=== PATIENT | female | born 1955 | race Two or more races ===

== ENCOUNTER 2016-07-21 15:54 | Emergency (ER) | payer MEDICAID ==
[~2016-07-21] VITALS: Ht 154.9 cm; Wt 62.6 kg
[2016-07-21 16:51] LABS: Basophils # (auto) 0.1 uL; Basophils % (auto) 0.6 % (0.0-2.0); Eosinophils # (auto) 0 uL; Eosinophils % (auto) 0.3 % (0.0-7.0); Hematocrit 45.6 % (36.0-46.0); Hemoglobin 14.8 g/dL (12.2-16.2); Lymphocytes # (auto) 1.4 uL; Lymphocytes % (auto) 8.2 % (10.0-50.0); Mean Corpuscular Hemoglobin 27.7 pg (28.0-32.0); Mean Corpuscular Hgb Conc. 32.4 g/dL (32.0-36.0); Mean Corpuscular Volume 85.6 fL (80.0-100.0); Mean Platelet Volume 9.9 fL (7.4-10.4); Monocytes # (auto) 0.6 uL; Monocytes % (auto) 3.8 % (0.0-12.0); Neutrophils # (auto) 14.8 uL; Neutrophils % (auto) 87.1 % (37.0-80.0); Platelet Count (auto) 239 10^3/uL (140-450); Red Cell Distribution Width 13.4 % (11.6-16.0)
[2016-07-21 17:19] LABS: Albumin 4.1 g/dL (3.4-5.0); BUN/Creatinine Ratio 18.3; Calcium 9.5 mg/dL (8.5-10.1); Potassium 3.4 mmol/L (3.5-5.1)
[2016-07-21 17:21] LABS: Bilirubin, Total 0.6 mg/dL (0.2-1.0); Total Protein 8.4 g/dL (6.4-8.2)
[2016-07-21] MEDS ORDERED: SODIUM CHLORIDE 0.9% 1,000 ML IVB ONE (20:26)
[2016-07-21] MEDS ORDERED: ONDANSETRON HCL 4 MG/2 ML VIAL IV ONE (20:30)
[2016-07-21] MEDS ORDERED: LORazepam 0.5 MG TAB PO ONE (20:30)
[2016-07-21 21:43] LABS: Urine Bilirubin Negative (Negative); Urine Blood Negative /uL (Negative); Urine Color Yellow (Yellow); Urine Glucose Normal (Normal); Urine Ketone Negative (Negative); Urine Nitrite Negative (Negative); Urine RBC 6 /hpf (0 - 4); Urine Squamous Epithelial Cell FEW /hpf (<5); Urine Urobilinogen Normal (Negative); Urine pH 7.5 (5.0-8.0)
[2016-07-21 22:05] VITALS: BP 114/67
== END 2016-07-21 22:24 | disposition home or self-care (01) ==
LOC: EDUNIT# 15:54 → EDBD 15:57 → ER 15:57
DX: R10.9 Unspecified abdominal pain (principal); F41.9 Anxiety disorder, unspecified; Z88.6 Allergy status to analgesic agent
CPT/HCPCS: 36415; 71010; 80053; 81001; 83690; 84484; 85025; 93005; 96361; 96374; 99285; J2405

== ENCOUNTER 2016-11-19 16:29 | Emergency (ER) | payer MEDICAID ==
[~2016-11-19] VITALS: Ht 157.5 cm; Wt 54.4 kg
[2016-11-19 16:34] VITALS: BP 139/73
[2016-11-19 17:52] LABS: Basophils # (auto) 0.1 uL; Basophils % (auto) 0.6 % (0.0-2.0); CONDITION Y; Eosinophils # (auto) 0 uL; Eosinophils % (auto) 0.4 % (0.0-7.0); Hematocrit 41.3 % (36.0-46.0); Hemoglobin 14.1 g/dL (12.2-16.2); Lymphocytes # (auto) 1.9 uL; Lymphocytes % (auto) 22.2 % (10.0-50.0); Mean Corpuscular Hemoglobin 29.2 pg (28.0-32.0); Mean Corpuscular Hgb Conc. 34.1 g/dL (32.0-36.0); Mean Corpuscular Volume 85.8 fL (80.0-100.0); Mean Platelet Volume 11.7 fL (7.4-10.4); Monocytes # (auto) 0.3 uL; Monocytes % (auto) 3.6 % (0.0-12.0); Neutrophils # (auto) 6.2 uL; Neutrophils % (auto) 73.2 % (37.0-80.0); Platelet Count (auto) 239 10^3/uL (140-450); Red Cell Distribution Width 12.6 % (11.6-16.0); White Blood Cell 8.5 10^3/uL (4.4-10.8)
[2016-11-19 17:58] LABS: Urine Bilirubin Negative (Negative); Urine Blood Negative /uL (Negative); Urine Color Yellow (Yellow); Urine Glucose Normal (Normal); Urine Ketone Negative (Negative); Urine Nitrite Negative (Negative); Urine RBC 1 /hpf (0 - 4); Urine Squamous Epithelial Cell FEW /hpf (<5); Urine Urobilinogen Normal (Negative); Urine pH 6.5 (5.0-8.0)
[2016-11-19 18:00] LABS: Albumin 3.9 g/dL (3.4-5.0); Alkaline Phosphatase 97 U/L (45-117); Anion Gap 9 (5-15); Aspartate Aminotransferase 31 U/L (15-37); BUN/Creatinine Ratio 19.8; Bilirubin, Total 0.4 mg/dL (0.2-1.0); Blood Urea Nitrogen 16 mg/dL (7-18); Calcium 9.3 mg/dL (8.5-10.1); Carbon Dioxide 28 mmol/L (21-32); Chloride 102 mmol/L (98-107); GFR African American 93 mL/min; GFR Non-African American 77 mL/min; Glucose 146 mg/dL (74-106); Magnesium 1.9 mg/dL (1.6-2.6); Potassium 3.3 mmol/L (3.5-5.1); Sodium 139 mmol/L (136-145); Total Protein 7.4 g/dL (6.4-8.2)
== END 2016-11-19 19:13 | disposition left against medical advice (07) ==
LOC: EDBD 16:29 → ER 16:29
DX: R07.89 Other chest pain (principal); Z53.21 Procedure and treatment not carried out due to patient leaving prior to being seen by health care provider
CPT/HCPCS: 36415; 80053; 81001; 83735; 84484; 85025; 93005

== ENCOUNTER 2018-05-23 03:35 | Emergency (ER) | payer MEDICAID ==
[~2018-05-23] VITALS: Ht 157.5 cm; Wt 62.1 kg
[2018-05-23 04:57] VITALS: BP 162/84
[2018-05-23] MEDS ORDERED: BACLOFEN 10 MG TAB PO ONE (05:00)
== END 2018-05-23 05:48 | disposition home or self-care (01) ==
LOC: ER 03:35
DX: S76.912A Strain of unspecified muscles, fascia and tendons at thigh level, left thigh, initial encounter (principal); S76.911A Strain of unspecified muscles, fascia and tendons at thigh level, right thigh, initial encounter; X58.XXXA Exposure to other specified factors, initial encounter; Y93.89 Activity, other specified; Y92.89 Other specified places as the place of occurrence of the external cause; Y99.8 Other external cause status
CPT/HCPCS: 73562

== ENCOUNTER 2020-05-02 10:18 | Emergency (ER) | payer MEDICAID ==
[~2020-05-02] VITALS: Ht 154.9 cm; Wt 63.5 kg
[2020-05-02] MEDS ORDERED: cefTRIAXone SOD 1,000 MG VL IM ONE (12:15)
[2020-05-02] MEDS ORDERED: ACETAMINOPHEN 500 MG TAB PO ONE (12:15)
[2020-05-02] MEDS ORDERED: DexAMETHasone SOD PHOS 10MG/1ML VIAL INJ IM ONE (12:15)
[2020-05-02 12:40] VITALS: BP 126/85
== END 2020-05-02 13:12 | disposition home or self-care (01) ==
LOC: ER 10:18
DX: U07.1 COVID-19 (principal); J12.89 Other viral pneumonia
CPT/HCPCS: 36415; 71045; 87426; 96372; 99284; J0696; J1100

== ENCOUNTER 2021-02-05 20:27 | Emergency (ER) | payer MEDICAID ==
[~2021-02-05] VITALS: Ht 165.1 cm; Wt 65.8 kg
[2021-02-06 00:21] LABS: Basophils # (auto) 0 10 ^3/uL (0-0.2); Basophils % (auto) 0.5 % (0.0-2.0); Eosinophils # (auto) 0.1 10 ^3/uL (0-0.8); Eosinophils % (auto) 1.5 % (0.0-7.0); Hematocrit 39.2 % (36.0-46.0); Hemoglobin 13.4 g/dL (12.2-16.2); Lymphocytes # (auto) 2.4 10 ^3/uL (0.4-5.4); Lymphocytes % (auto) 33.5 % (10.0-50.0); Mean Corpuscular Hemoglobin 29.3 pg (28.0-32.0); Mean Corpuscular Hgb Conc. 34.3 g/dL (32.0-36.0); Mean Corpuscular Volume 85.4 fL (80.0-100.0); Monocytes # (auto) 0.5 10 ^3/uL (0-1.3); Monocytes % (auto) 7.2 % (0.0-12.0); Neutrophils # (auto) 4.1 10 ^3/uL (1.6-8.6); Neutrophils % (auto) 57.3 % (37.0-80.0); Nucleated Red Blood Cells % 0.1 %; Red Blood Cells 4.59 10^6/uL (4.0-5.20); Red Cell Distribution Width 13.8 % (11.8-14.3); White Blood Cell 7.2 10^3/uL (4.4-10.8)
[2021-02-06 00:39] LABS: Alanine Aminotransferase 51 U/L (13-56); Albumin 3.8 g/dL (3.4-5.0); Anion Gap 7 (5-15); Aspartate Aminotransferase 25 U/L (15-37); Blood Urea Nitrogen 9 mg/dL (7-18); Calcium 9.1 mg/dL (8.5-10.1); Carbon Dioxide 28 mmol/L (21-32); Chloride 105 mmol/L (98-107); GFR African American 110 mL/min; GFR Non-African American 91 mL/min; Glucose 126 mg/dL (74-106); Magnesium 1.9 mg/dL (1.6-2.6); Potassium 3.3 mmol/L (3.5-5.1); Sodium 140 mmol/L (136-145)
[2021-02-06 00:43] LABS: Alkaline Phosphatase 89 U/L (45-117); Bilirubin, Total 0.4 mg/dL (0.2-1.0); Total Protein 7.6 g/dL (6.4-8.2)
[2021-02-06 02:54] VITALS: BP 157/79
== END 2021-02-06 02:54 | disposition home or self-care (01) ==
LOC: ER 20:28
DX: R07.89 Other chest pain (principal); I10 Essential (primary) hypertension; E11.9 Type 2 diabetes mellitus without complications
CPT/HCPCS: 36415; 71046; 80053; 83735; 84484; 85025; 93005

== ENCOUNTER 2023-08-15 00:51 | Emergency (ER) | payer OTHER, MEDICAID ==
[~2023-08-15] VITALS: Ht 157.5 cm; Wt 65.9 kg
[2023-08-15 02:05] LABS: Basophils # (auto) 0 10 ^3/uL (0-0.2); Basophils % (auto) 0.3 % (0.0-2.0); Eosinophils # (auto) 0 10 ^3/uL (0-0.8); Eosinophils % (auto) 0.1 % (0.0-7.0); Hematocrit 45.2 % (36.0-46.0); Lymphocytes # (auto) 0.9 10 ^3/uL (0.4-5.4); Lymphocytes % (auto) 7.3 % (10.0-50.0); Mean Corpuscular Hemoglobin 28.5 pg (28.0-32.0); Mean Corpuscular Hgb Conc. 33.1 g/dL (32.0-36.0); Monocytes # (auto) 0.4 10 ^3/uL (0-1.3); Monocytes % (auto) 3.5 % (0.0-12.0); Neutrophils # (auto) 11.1 10 ^3/uL (1.6-8.6); Neutrophils % (auto) 88.8 % (37.0-80.0); Red Blood Cells 5.26 10^6/uL (4.0-5.20); Red Cell Distribution Width 14.1 % (11.8-14.3); White Blood Cell 12.5 10^3/uL (4.4-10.8)
[2023-08-15 02:11] LABS: Urine Blood Negative /uL (Negative); Urine Clarity HAZY (Clear); Urine Color Yellow (Yellow); Urine Protein, UAD 1+ (Negative); Urine Specific Gravity 1.028 (1.001-1.035); Urine Urobilinogen Normal (Negative); Urine pH 8.5 (5.0-8.0)
[2023-08-15 02:30] LABS: Alanine Aminotransferase 50 U/L (7-40); Albumin 4.7 g/dL (3.2-4.8); Alkaline Phosphatase 93 U/L (46-116); Anion Gap 7 (5-15); Aspartate Aminotransferase 41 U/L (13-40); BUN/Creatinine Ratio 17.9 (10.0-20.0); Bilirubin, Total 0.7 mg/dL (0.2-1.0); Blood Urea Nitrogen 14 mg/dL (9-23); Calcium 9.1 mg/dL (8.7-10.4); Carbon Dioxide 27 mmol/L (20-30); Chloride 103 mmol/L (98-107); Glucose 168 mg/dL (74-106); Lipase 44 U/L (12-53); Potassium 3.2 mmol/L (3.5-5.1); Sodium 137 mmol/L (136-145); Total Protein 7.8 g/dL (5.7-8.2)
[2023-08-15] MEDS ORDERED: PANT40TA2 PO (04:57)
[2023-08-15] MEDS: POTASSIUM EFFERVESENT TAB 25 MEQ PO ONE (05:10)
[2023-08-15 05:11] VITALS: BP 115/68; PULSE 102; RESP 18; TEMP 98.2; O2SAT 96
== END 2023-08-15 05:14 | disposition home or self-care (01) ==
LOC: ER 00:51
DX: K59.00 Constipation, unspecified (principal); R14.0 Abdominal distension (gaseous); I10 Essential (primary) hypertension; E11.9 Type 2 diabetes mellitus without complications; Z90.49 Acquired absence of other specified parts of digestive tract; Z88.8 Allergy status to other drugs, medicaments and biological substances
CPT/HCPCS: 36415; 74176; 80053; 81003; 83690; 85025

== ENCOUNTER 2023-11-22 14:22 | Inpatient (IN) | payer OTHER, MEDICAID ==
[~2023-11-22] VITALS: Ht 157.5 cm; Wt 71.6 kg
[~2023-11-22 14:22] MED LIST: PANT40TA2 PO
[2023-11-22 15:09] LABS: Basophils # (auto) 0 10 ^3/uL (0-0.2); Basophils % (auto) 0.4 % (0.0-2.0); Eosinophils # (auto) 0.1 10 ^3/uL (0-0.8); Eosinophils % (auto) 1.3 % (0.0-7.0); Hematocrit 42.5 % (36.0-46.0); Hemoglobin 14.1 g/dL (12.2-16.2); Lymphocytes # (auto) 2.3 10 ^3/uL (0.4-5.4); Lymphocytes % (auto) 33.4 % (10.0-50.0); Mean Corpuscular Hemoglobin 28.7 pg (28.0-32.0); Mean Corpuscular Hgb Conc. 33.2 g/dL (32.0-36.0); Mean Corpuscular Volume 86.4 fL (80.0-100.0); Monocytes # (auto) 0.5 10 ^3/uL (0-1.3); Neutrophils # (auto) 4.1 10 ^3/uL (1.6-8.6); Neutrophils % (auto) 57.9 % (37.0-80.0); Red Blood Cells 4.92 10^6/uL (4.0-5.20); Red Cell Distribution Width 13.7 % (11.8-14.3)
[2023-11-22 15:20] LABS: Chloride 106 mmol/L (98-107); Potassium 3.5 mmol/L (3.5-5.1); Sodium 140 mmol/L (136-145)
[2023-11-22 15:21] LABS: Anion Gap 6 (5-15); Calcium 10.2 mg/dL (8.5-10.1); Carbon Dioxide 28 mmol/L (20-30)
[2023-11-22 15:26] LABS: BUN/Creatinine Ratio 16.3 (10.0-20.0); Blood Urea Nitrogen 15 mg/dL (9-23); Glucose 111 mg/dL (74-106)
[2023-11-22] MEDS: DONNATAL 5ml ORAL Elix (BELLADONNA ALK-PHENOBARB) PO ONE (15:45)
[2023-11-22 15:47] LABS: Urine Bacteria None Seen /hpf (None Seen)
[2023-11-22 16:01] LABS: Urine Blood Negative /uL (Negative); Urine Clarity Clear (Clear); Urine Color Colorless (Yellow); Urine Protein, UAD Negative (Negative); Urine Specific Gravity 1.008 (1.001-1.035); Urine Urobilinogen Normal (Negative); Urine WBC 1 /hpf (0 - 5); Urine pH 6.5 (5.0-9.0)
[2023-11-22] MEDS: LIDOCAINE VISCOUS 2% 15ML UD PO ONE (16:17)
[2023-11-22] MEDS: MAALOX PLUS or MAALOX 30 ML PO ONE (16:17)
[2023-11-22] MEDS ORDERED: HYDR25TA5 PO (16:45)
[2023-11-22] MEDS ORDERED: BENA10TA90 PO (16:45)
[2023-11-22] MEDS ORDERED: MORPHINE SULFATE INJ 2 MG/ml SYRG IV PRN (16:45)
[2023-11-22] MEDS ORDERED: ATOR10TA52 PO (16:45)
[2023-11-22] MEDS ORDERED: DOCUSATE SOD 100 MG CAP PO PRN (16:45)
[2023-11-22] MEDS ORDERED: ONDANSETRON HCL 4 MG/2 ML VIAL IV PRN (16:45)
[2023-11-22] MEDS ORDERED: DEXTROSE (50%) 50ML SYRG IV PRN (17:00)
[2023-11-22] MEDS: ACCU-CHEK COMFORT CURVE STRIP VI SCH (17:45)
[2023-11-22] MEDS: InsuLIN REG 1unit/0.01ml Soln (100units/ml) SC SCH (17:46)
[2023-11-22 17:47] VITALS: O2SAT 95
[2023-11-22 18:50] VITALS: BP 157/62; PULSE 18; PULSE 86; RESP 18; RESP 19; O2SAT 97
[2023-11-22 18:52] VITALS: PULSE 77; RESP 20; O2SAT 98
[2023-11-22] MEDS ORDERED: METF-370 PO (19:59)
[2023-11-22 20:00] VITALS: PULSE 80; RESP 18; O2SAT 0; O2SAT 95; O2SAT 97
[2023-11-22 20:09] VITALS: BP 157/62; PULSE 86; RESP 19; O2SAT 97
[2023-11-22 21:00] VITALS: BP 134/58; PULSE 84; RESP 19; TEMP 98; O2SAT 93
[2023-11-22] MEDS: SUCRALFATE 1 GM/10 ML ORAL SUSP PO SCH (21:39)
[2023-11-22] MEDS: ATORVASTATIN 20 MG TAB PO SCH (21:39)
[2023-11-23] VITALS (8 sets, daily range): BP systolic 104–131; BP diastolic 6–74; PULSE 70–94; RESP 16–21; TEMP 97.8–98.8; O2SAT 94–98
[2023-11-23] MEDS: hydroCHLOROthiazide 25 MG TAB PO SCH (06:16)
[2023-11-23] MEDS: PANTOPRAZOLE 40 MG TAB PO SCH (06:16)
[2023-11-23 07:15] LABS: Basophils # (auto) 0 10 ^3/uL (0-0.2); Basophils % (auto) 0.5 % (0.0-2.0); Eosinophils # (auto) 0.1 10 ^3/uL (0-0.8); Eosinophils % (auto) 1.1 % (0.0-7.0); Hematocrit 41.5 % (36.0-46.0); Hemoglobin 13.9 g/dL (12.2-16.2); Lymphocytes # (auto) 2.5 10 ^3/uL (0.4-5.4); Lymphocytes % (auto) 35.6 % (10.0-50.0); Mean Corpuscular Hemoglobin 29.3 pg (28.0-32.0); Mean Corpuscular Hgb Conc. 33.4 g/dL (32.0-36.0); Mean Corpuscular Volume 87.7 fL (80.0-100.0); Monocytes # (auto) 0.6 10 ^3/uL (0-1.3); Monocytes % (auto) 7.9 % (0.0-12.0); Neutrophils # (auto) 3.9 10 ^3/uL (1.6-8.6); Neutrophils % (auto) 54.9 % (37.0-80.0); Red Blood Cells 4.74 10^6/uL (4.0-5.20); Red Cell Distribution Width 13.8 % (11.8-14.3)
[2023-11-23 07:46] LABS: Alanine Aminotransferase 24 U/L (7-40); Albumin 4.5 g/dL (3.2-4.8); Alkaline Phosphatase 76 U/L (46-116); Anion Gap 7 (5-15); Aspartate Aminotransferase 17 U/L (13-40); BUN/Creatinine Ratio 18.3 (10.0-20.0); Blood Urea Nitrogen 15 mg/dL (9-23); Calcium 10.1 mg/dL (8.5-10.1); Carbon Dioxide 27 mmol/L (20-30); Chloride 105 mmol/L (98-107); Glucose 116 mg/dL (74-106); Potassium 3.7 mmol/L (3.5-5.1); Sodium 139 mmol/L (136-145)
[2023-11-23 07:47] LABS: Bilirubin, Total 0.9 mg/dL (0.2-1.0); Total Protein 7.4 g/dL (5.7-8.2)
[2023-11-23] MEDS: BENAZEPRIL HCL 10 MG TAB PO SCH (11:11)
[2023-11-23] MEDS: TEMAZEPAM 15 MG CAP PO ONE (23:24)
[2023-11-24 01:30] VITALS: BP 107/62; PULSE 89; RESP 18; TEMP 97.8; O2SAT 95
[2023-11-24 05:20] VITALS: BP 104/75; PULSE 96; RESP 18; TEMP 97.4; O2SAT 96
[2023-11-24 08:00] VITALS: PULSE 77; RESP 20; O2SAT 96
[2023-11-24] MEDS ORDERED: PANT40T PO (08:46)
[2023-11-24] MEDS ORDERED: SUCR1SUS26 PO (08:46)
[2023-11-24 09:00] VITALS: BP_SYST 115; BP_SYST 97; BP_DIAS 41; BP_DIAS 67; PULSE 1; PULSE 78; RESP 16; RESP 20; TEMP 97.7; TEMP 97.9; O2SAT 95; O2SAT 97
[2023-11-24 10:27] VITALS: BP 126/65; PULSE 77; RESP 20; TEMP 98.3; O2SAT 98
== END 2023-11-24 14:30 | disposition home or self-care (01) | DRG 392 ==
LOC: ER 14:22 → OVERFLOW 16:45 → EAST 17:51
PROVIDERS: ADMIT Internal Medicine; ATTEND Internal Medicine
DX: K29.70 Gastritis, unspecified, without bleeding (principal); E11.9 Type 2 diabetes mellitus without complications; E78.5 Hyperlipidemia, unspecified; I10 Essential (primary) hypertension; K21.9 Gastro-esophageal reflux disease without esophagitis; E66.9 Obesity, unspecified; T38.3X5A Adverse effect of insulin and oral hypoglycemic [antidiabetic] drugs, initial encounter; Z88.6 Allergy status to analgesic agent; Z90.49 Acquired absence of other specified parts of digestive tract; Z82.49 Family history of ischemic heart disease and other diseases of the circulatory system; Y92.89 Other specified places as the place of occurrence of the external cause; Z68.28 Body mass index [BMI] 28.0-28.9, adult
CPT/HCPCS: 36415; 80048; 80053; 81001; 82962; 85025; G0378

== ENCOUNTER 2024-08-11 08:03 | Inpatient (IN) | payer OTHER, MEDICAID ==
[~2024-08-11] VITALS: Ht 157.5 cm; Wt 72.4 kg
[~2024-08-11 08:03] MED LIST changes: +ATOR10TA52 PO; +BENA10TA90 PO; +HYDR25TA5 PO; +METF-370 PO; +PANT40T PO; +SUCR1SUS26 PO
--- NOTE | 2024-08-11 08:23 | ED.PDOC ---
HPI Comments 69 y/o F, BIBA with PMHX of HTN and DM2 presents to the ED for CC of chest pain. Per EMS, patient is coming from home where she experienced sudden spontaneous substernal chest pain that radiates to her jaw x1.5hrs. Patient states, that she has experienced similar in the past and is following up with her PCP; however symptoms worsened today. EMS states, patient was given 324mg of Aspirin and x2 Nitroglycerin for discomfort. Patient denies shortness of breath, palpitations, abdominal pain, or N/V/D. No other associated symptoms, modifiers, recent injuries or sick contacts at this time. Chief Complaint: Chest Pain Time Seen by MD: 08:10 Primary Care Provider: none Reviewed Notes: Nurses Notes, Silverer Notes, Medications, Allergies Allergies: Coded Allergies: Acetaminophen (Verified Allergy, Unknown, 06/25/14) Home Meds Active Scripts Sucralfate (CARAFATE SUSP) 1 Gm/10 Ml Ss, 1 GM PO TID@0600,1130,2200 for 90 Days, #90 ML Prov:JIMBO CRAWFORD RESIDENT 11/24/23 Pantoprazole Sodium Sesquihydr (Pantoprazole Sodium) 40 Mg Tab, 40 MG PO DAILY@0600 for 90 Days, #90 TAB Prov:JIMBO CRAWFORD RESIDENT 11/24/23 Pantoprazole Sodium Sesquihydr (Protonix) 40 Mg Tab, 40 MG PO DAILY PRN for 30 Days, #30 TAB Prov:GATO PRETTY MD 08/15/23 Reported Medications Metformin Hydrochloride (Metformin Hcl) 500 Mg Tab, 250 MG PO DAILY for 30 Days, MG 11/22/23 Hctz (Hydrochlorothiazide) 25 Mg Tab, 1 TAB PO QAM 11/22/23 Benazepril Hcl (Benazepril Hcl) 10 Mg Tab, 1 TAB PO DAILY 11/22/23 Atorvastatin Calcium (ATORVASTATIN CALCIUM) 10 Mg Tab, 1 TAB PO DAILY 11/22/23 Information Source: Patient, Relative (Child), Emergency Med Personnel Severity: Moderate Timing: Hours Duration: Since onset Prehospital treatment: 12 Lead EKG Location: Substernal Radiation: Jaw Onset: At Rest Cardiac Risk Factors: None PE Risk Factors: None History of: None Modifying Factors: Nothing Associated Signs and Symptoms: None Past Medical History PAST MEDICAL HISTORY: DM, HTN Surgical History: Cholecystectomy [employer] History: No Pertinent [employer] History Family History Family History: Reviewed,noncontributory to illness Social History Smoker: Non-Smoker Alcohol: Denies ETOH Use Drugs: Denies Drug Use Lives In: Home Constitutional: denies: chills, diaphoresis, fatigue, fever, malaise, sweats, weakness, others EENTM: denies: blurred vision, double vision, ear bleeding, ear discharge, ear drainage, ear pain, ear ringing, eye pain, eye redness, hearing loss, mouth pain, mouth swelling, nasal discharge, nose bleeding, nose congestion, nose pain, photophobia, tearing, throat pain, throat swelling, voice changes, others Respiratory: denies: cough, hemoptysis, orthopnea, SOB at rest, shortness of breath, SOB with excertion, stridor, wheezing, others Cardiovascular: reports: chest pain; denies: dizzy spells, diaphoresis, Dyspnea on exertion, edema, irregular heart beat, left arm pain, lightheadedness, palpitations, PND, syncope, others Gastrointestinal: denies: abdomen distended, abdominal pain, blood streaked bowels, constipated, diarrhea, dysphagia, difficulty swallowing, hematemesis, melena, nausea, poor appetite, poor fluid intake, rectal bleeding, rectal pain, vomiting, others Genitourinary: denies: abnormal vagina bleeding, burning, dyspareunia, dysuria, flank pain, frequency, hematuria, incontinence, pain, , vagina discharge, urgency, others Neurological: reports: weakness (body shakes); denies: dizziness, fainting, headache, left sided numbness, left sided weakness, numbness, paresthesia, pre-existing deficit, right sided numbness, right sided weakness, seizure, speech problems, tingling, tremors, others Musculoskeletal: denies: back pain, gout, joint pain, joint swelling, muscle pain, muscle stiffness, neck pain, others Integumetry: denies: bruises, change in color, change in hair/nails, dryness, laceration, lesions, lumps, rash, wounds, others Allergic/Immunocompromised: denies: Difficulty Healing, Frequent Infections, Hives, Itching, others Hematologic/Lymphatic: denies: anemia, blood clots, easy bleeding, easy bruising, swollen glands, others Endocrine: denies: excessive hunger, excessive sweating, excessive thirst, excessive urination, flushing, intolerance to cold, intolerance to heat, unexplained weight gain, unexplained weight loss, others Psychiatric: denies: anxiety, bipolar disorder, depression, hopeless, panic disorder, schizophrenia, sleepless, suicidal, others All Other Systems: Reviewed and Negative Physical Exam General Appearance: Moderate Distress HEENT: Pharyngeal Erythema Neck: Full Range of Motion, Non-Tender, Normal, Normal Inspection Respiratory: Chest Non-Tender, Lungs Clear, No Accessory Muscle Use, No Respiratory Distress, Normal Breath Sounds Cardiovascular: No Edema, No JVD, No Murmur, No Gallop, Normal Peripheral Pulses, Regular Rate/Rhythm Breast Exam: Deferred Gastrointestinal: No Organomegaly, Non Tender, No Pulsatile Mass, Normal Bowel Sounds, Soft Genitalia: Deferred Pelvic: Deferred Rectal: Deferred Extremities: No pedal edema Musculoskeletal : Apperance: Normal Neurologic: Alert, No Motor Deficits, No Sensory Deficits Cerebellar Function: NOT DONE Reflexes: NOT DONE Skin: Dry, Normal Color, Warm Peripheral Pulses: 3+ Radial (R), 3+ Radial (L) Lymphatic: No Adenopathy Was a procedure done? Was a procedure done?: No CP Differential Dx Differential Diagnosis: A-fib, A-Flutter, Angina, Anxiety / Panic Attack, Atrial Dysrhythmia, Electrolyte Disorder Differential Diagnosis: HTN Essential, HTN Accelerated Differential Diagnosis: Angina, Chest Wall Pain, Costochondritis X-Ray, Labs, Meds, VS Vital Signs Date Time Temp Pulse Resp B/P (MAP) Pulse Ox O2 Delivery O2 Flow Rate FiO2 08/11/24 09:02 84 08/11/24 08:30 151/59 08/11/24 08:08 88 08/11/24 08:05 98.2 91 19 129/75 (93) 96 Lab Test 08/11/24 08:28 08/11/24 08:12 Range/Units Troponin I High Sensitivity Pending POC Glucose 166 H 70-106 mg/dl Current Medications Medications (Trade) Dose Ordered Sig/Berto Route Start Time Stop Time Status Last Admin Nitroglycerin (Ntrostat Sublingual) 0.4 mg ONCE ONCE SL 08/11/24 08:30 08/11/24 08:31 DC 08/11/24 08:30 [facility] [id number] [place] [id number] Ph: [phone] DIAGNOSTIC IMAGING Diagnostic Imaging Report : [id number] Signed PATIENT: JOHNNY HINES ACCT: [id number] UNIT: [id number] : 1955 LOC: ER ROOM / BED: / AGE / SEX: 69 / F ADM STATUS: REG ER SERVICE 6 ORDERING PHYSICIAN: RUCHI ORTEGA MD PROCEDURE(s): CXRP - CHEST PORTABLE REASON: sob ORDER NUMBER(s): [id number], ACCESSION NUMBER(s): [id number] XY CHEST PORTABLE, HISTORY: sob COMPARISON: CHEST PORTABLE on DOS: 05/02/20 CHEST PORTABLE on DOS: 05/02/20 TECHNICAL DATA: 1 view of the chest was obtained. FINDINGS: Lines and tubes: None Cardiomediastinal silhouette: normal Pulmonary vasculature: normal Lung expansion: normal Lung airspace: normal Lung interstitium: normal Pleura: normal Pneumothorax: no Bones: Unremarkable Other: no IMPRESSION: No acute intrathoracic abnormality. ATED BY: IGNACIO MARQUEZ MD DICTATED DATE/TIME: 08/11/24842 SIGNED BY: IGNACIO MARQUEZ MD SIGNED DATE/TIME: 08/11/24842 CC: Patient alert. Complaining of chest pain. Blood sugar elevated. Saturation pristine on room air. Was given aspirin nitro in the field. Continues to have chest pain. Explained to the family that she will need echocardiogram. Stress test. Cardiology consultation. Was given nitro in the ER. Continue monitoring. Strong risk factors for coronary artery disease. EKG reviewed does show T-wave changes. Time of 1ST Reevaluation: 08:40 Reevaluation 1ST: Unchanged Patient Education/Counseling: Diagnosis, Treatment Family Education/Counseling: No Family Present Departure 1 Departure Time of Disposition: 08:29 Impression: Primary Impression: Chest pain of unknown etiology Additional Impression: Uncontrolled diabetes mellitus Qualified Codes: E13.65 - Other specified diabetes mellitus with hyperglycemia Disposition: ADMITTED INPATIENT Admit to: Med Surg Condition: Guarded Critical Care Note Critical Care Time?: No Stability Stability form required: No Heart Score Heart Score: Heart Score Response (Comments) Value History Slightly Suspicious 0 EKG Normal 0 Age >65 2 Risk Factors >3 or Hx ASHD 2 Troponin Normal limit 0 Total 4 I personally scribed for RUCHI ORTEGA MD ([email or web address]) on 08/11/24 at 08:23. Electronically submitted by Margaret Muir ([email or web address]). I personally scribed for RUCHI ORTEGA MD ([email or web address]) on 08/11/24 at 09:05. Electronically submitted by Margaret Muir ([email or web address]). RUCHI ORTEGA MD Aug 11, 2024 08:23
[2024-08-11 08:25] VITALS: PULSE 85; RESP 14; O2SAT 98
[2024-08-11] MEDS: NITROGLYCERIN 0.4 MG SL TAB SL ONE (08:30)
--- NOTE | 2024-08-11 08:46 | DVH ---
XY CHEST PORTABLE, HISTORY: sob COMPARISON: CHEST PORTABLE on DOS: 05/02/20 CHEST PORTABLE on DOS: 05/02/20 TECHNICAL DATA: 1 view of the chest was obtained. FINDINGS: Lines and tubes: None Cardiomediastinal silhouette: normal Pulmonary vasculature: normal Lung expansion: normal Lung airspace: normal Lung interstitium: normal Pleura: normal Pneumothorax: no Bones: Unremarkable Other: no IMPRESSION: No acute intrathoracic abnormality.
[2024-08-11 09:16] LABS: Chloride 106 mmol/L (98-107); Sodium 139 mmol/L (136-145)
[2024-08-11 09:17] LABS: Anion Gap 6 (5-15); Calcium 10.1 mg/dL (8.7-10.4); Carbon Dioxide 27 mmol/L (20-31)
[2024-08-11 09:18] LABS: Potassium 3.5 mmol/L (3.5-5.1)
[2024-08-11 09:19] LABS: Basophils # (auto) 0 10 ^3/uL (0-0.2); Basophils % (auto) 0.6 % (0.0-2.0); Eosinophils # (auto) 0.1 10 ^3/uL (0-0.8); Eosinophils % (auto) 1.6 % (0.0-7.0); Hematocrit 42.3 % (36.0-46.0); Hemoglobin 14.4 g/dL (12.2-16.2); Lymphocytes % (auto) 34.9 % (10.0-50.0); Mean Corpuscular Hemoglobin 29.4 pg (28.0-32.0); Mean Corpuscular Hgb Conc. 34.1 g/dL (32.0-36.0); Mean Corpuscular Volume 86.1 fL (80.0-100.0); Monocytes # (auto) 0.3 10 ^3/uL (0-1.3); Monocytes % (auto) 5.7 % (0.0-12.0); Neutrophils # (auto) 3.3 10 ^3/uL (1.6-8.6); Neutrophils % (auto) 57.2 % (37.0-80.0); Nucleated Red Blood Cells % 0.1 %; Platelet Count (auto) 206 10^3/uL (140-450); Red Blood Cells 4.91 10^6/uL (4.0-5.20); Red Cell Distribution Width 13.6 % (11.8-14.3); White Blood Cell 5.8 10^3/uL (4.4-10.8)
[2024-08-11 09:22] LABS: BUN/Creatinine Ratio 17.9 (10.0-20.0); Blood Urea Nitrogen 15 mg/dL (9-23)
[2024-08-11 09:26] LABS: Glucose 160 mg/dL (74-106)
[2024-08-11 09:39] LABS: Urine Bacteria None Seen /hpf (None Seen)
[2024-08-11 09:48] LABS: Urine Blood Negative /uL (Negative); Urine Clarity Clear (Clear); Urine Color Colorless (Yellow); Urine Protein, UAD Negative (Negative); Urine Specific Gravity 1.009 (1.001-1.035); Urine Squamous Epithelial Cell FEW /hpf (<5); Urine Urobilinogen Normal (Negative); Urine WBC < 1 /HPF (0-5)
[2024-08-11] MEDS ORDERED: MORPHINE SULFATE INJ 2 MG/ml SYRG IV PRN (10:45)
[2024-08-11] MEDS ORDERED: MORPHINE SULFATE 4 MG/ML SYR/VIAL IV PRN (10:45)
[2024-08-11] MEDS ORDERED: NITROGLYCERIN 0.4 MG SL TAB SL PRN ×2 (10:45)
[2024-08-11] MEDS ORDERED: DEXTROSE (50%) 50ML SYRG IV PRN (10:45)
--- NOTE | 2024-08-11 10:52 | DVHHP2 ---
History of Present Illness Reason for Visit: Chest pain History of Present Illness Eleni Tillman is a 69-year-old female with past medical history of hypertension, hyperlipidemia, diabetes, GERD, anxiety, and cholecystectomy who presents to the ED with substernal chest pain that radiates to her left shoulder and back. Patient reports that she was sleeping at the time and the pain woke her up around 7:00 a.m. this morning. She complains of throbbing 8/10 intermittent pain. Patient does report that she is taking care of her sick at home. Patient states that there are no alleviating factors. She denies any recent trauma or injury, recent illnesses, shortness of breath, abdominal pain, nausea, vomiting, diarrhea, lightheadedness, weakness, and dizziness. Cardiovascular: HTN, hyperipidemia GI: GERD Psych: Anxiety Endocrine: Diabetes Past Surgical History: Cholecystectomy Family History: None Smoke: No ALCOHOL: none Drugs: None Lives: with Family Domestic Violence: Neg Review of Systems Cardiovascular: Chest Pain Musculoskeletal: shoulder pain, back pain Allergies: Coded Allergies: NO KNOWN ALLERGIES (Unverified , 08/11/24) Exam Vital Signs Vital Signs Date Time Temp Pulse Resp B/P (MAP) Pulse Ox O2 Delivery O2 Flow Rate FiO2 08/11/24 09:27 122/65 08/11/24 09:02 84 08/11/24 08:25 14 98 08/11/24 08:25 Room Air* 0 21 08/11/24 08:05 98.2 General Appearance: Alert, Oriented X3, Cooperative, No acute distress HEENT: Atraumatic, PERRLA, EOMI Respiratory: Clear to auscultation, Normal air movement Cardiovascular: Regular rate, Normal S1, Normal S2, No murmurs Abdominal: Normal bowel sounds, Soft, No tenderness, No hepatospenomegaly, No masses Extremities: No clubbing, No cyanosis, No edema, Normal pulses, No tenderness/swelling Skin: No significant lesion Neuro: Normal speech, Strength at 5/5 X4 ext, Normal tone, Sensation intact Psych/Mental Status: Mental status NL, Other (Anxious) Labs/Xrays Labs Test 08/11/24 09:16 08/11/24 09:00 08/11/24 08:28 08/11/24 08:12 Range/Units Troponin I High Sensitivity 3 L </=34 ng/L Urine Color Colorless Yellow Urine Clarity Clear Clear Urine pH 5.0 5.0-9.0 Urine Specific [place] 1.009 1.001-1.035 Urine Protein Negative Negative Urine Ketones Negative Negative Urine Blood Negative Negative /uL Urine Nitrite Negative Negative Urine Bilirubin Negative Negative Urine Urobilinogen Normal Negative mg/dL Urine Leukocyte Esterase Negative Negative /uL Urine RBC 1 0 - 4 /hpf Urine Microscopic WBC < 1 0-5 /HPF Urine Squamous Epithelial Cells Few <5 /hpf Urine Bacteria None seen None Seen /hpf Urine Glucose Normal Normal mg/dL White Blood Count 5.8 4.4-10.8 10^3/uL Red Blood Count 4.91 4.0-5.20 10^6/uL Hemoglobin 14.4 12.2-16.2 g/dL Hematocrit 42.3 36.0-46.0 % Mean Corpuscular Volume 86.1 80.0-100.0 fL Mean Corpuscular Hemoglobin 29.4 28.0-32.0 pg Mean Corpuscular Hemoglobin Concent 34.1 32.0-36.0 g/dL Red Cell Distribution Width 13.6 11.8-14.3 % Platelet Count 206 140-450 10^3/uL Mean Platelet Volume 9.9 6.9-10.8 fL Neutrophils (%) (Auto) 57.2 37.0-80.0 % Lymphocytes (%) (Auto) 34.9 10.0-50.0 % Monocytes (%) (Auto) 5.7 0.0-12.0 % Eosinophils (%) (Auto) 1.6 0.0-7.0 % Basophils (%) (Auto) 0.6 0.0-2.0 % Neutrophils # (Auto) 3.3 1.6-8.6 10 ^3/uL Lymphocytes # (Auto) 2.0 0.4-5.4 10 ^3/uL Monocytes # (Auto) 0.3 0-1.3 10 ^3/uL Eosinophils # (Auto) 0.1 0-0.8 10 ^3/uL Basophils # (Auto) 0 0-0.2 10 ^3/uL Nucleated Red Blood Cells 0.1 % Sodium Level 139 136-145 mmol/L Potassium Level 3.5 3.5-5.1 mmol/L Chloride Level 106 98-107 mmol/L Carbon Dioxide Level 27 20-31 mmol/L Anion Gap 6 5-15 Blood Urea Nitrogen 15 9-23 mg/dL Creatinine 0.84 0.550-1.02 mg/dL Glomerular Filtration Rate Calc 76 >90 mL/min BUN/Creatinine Ratio 17.9 10.0-20.0 Serum Glucose 160 H 74-106 mg/dL Calcium Level 10.1 8.7-10.4 mg/dL POC Glucose 166 H 70-106 mg/dl XY CHEST PORTABLE, HISTORY: sob COMPARISON: CHEST PORTABLE on DOS: 05/02/20 CHEST PORTABLE on DOS: 05/02/20 TECHNICAL DATA: 1 view of the chest was obtained. FINDINGS: Lines and tubes: None Cardiomediastinal silhouette: normal Pulmonary vasculature: normal Lung expansion: normal Lung airspace: normal Lung interstitium: normal Pleura: normal Pneumothorax: no Bones: Unremarkable Other: no IMPRESSION: No acute intrathoracic abnormality. Assessment/Plan Assessment/Plan Assessment Chest pain Diabetes type 2 uncontrolled History of hypertension History of hyperlipidemia History of GERD History of anxiety History of cholecystectomy greater than 20 years ago Plan Admit to tele Nitro given in ED Chest x-ray noted EKG UA noted Troponin negative Hemoglobin A1c ISS and Accu-Cheks ACS workup Aspirin Statin Echo ordered UDS TSH Lipid panel ACS protocol Magnesium ordered Mag level Antiemetics Pain management Diet DVT prophylaxis not indicated patient ambulating Continue home medication, Protonix Home medications reconciled Discussed plan of care with patient and nurse Plan discussed with: Patient My Orders Orders - MAUREEN ASENCIO [employer]GE[employer] Procedure Category Date Status Time Hemoglobin A1c LAB 08/11/24 Verified 10:44 Glucose Blood PHA 08/11/24 Verified (Accu-Chek Comfort 11:30 Mild Sliding Scale PHA 08/11/24 Verified 11:30 Dextrose 50% Syringe PHA 08/11/24 Verified 10:45 Admit ADMIT 08/11/24 Verified 10:44 Code Status CODE 08/11/24 Verified 10:44 Vital Signs JAYLENE 08/11/24 Verified 10:44 Double Bass Player JAYLENE 08/11/24 Verified 10:44 Cardiac DIET 08/11/24 Verified Diet-2gna,Lofat,Lochol Lunch Aspirin Tablet PHA 08/12/24 Verified 10:00 Lipitor 40mg Hs PHA 08/11/24 Verified Hi-Intensity 22:00 Morphine Sulfate PHA 08/11/24 Verified Injection 10:45 Acetaminophen Tablet PHA 08/11/24 Verified (Tylenol Tablet) 10:45 Complete Blood Count LAB 08/12/24 Verified 04:00 Basic Metabolic Panel LAB 08/12/24 Verified 04:00 Magnesium LAB 08/12/24 Verified 04:00 Echo 2d Mode Cardiac US 08/11/24 Verified DOP 10:44 Nitroglycerin PHA 08/11/24 Verified Sublingual (Ntrostat 10:45 Ondansetron Hcl PHA 08/11/24 Verified (Zofran) 10:45 Electrocardigram EKG 08/12/24 Verified 04:00 Troponin-I Hs LAB 08/11/24 Verified 10:44 Cardiac JAYLENE 08/11/24 Verified Rehabilitation - Outpa Nitroglycerin PHA 08/11/24 Verified Sublingual (Ntrostat 10:45 Morphine Sulfate PHA 08/11/24 Verified Injection 10:45 Stat Ekg For Chest [facility] 08/11/24 Verified Pain 10:44 Notify Md Of Changes [facility] 08/11/24 Verified From Base 10:44 Road Mechanic For [facility] 08/11/24 Verified 24 Hours 10:44 Emergency Dysrhythmia [facility] 08/11/24 Verified Protocol 10:44 Rhythm Strips Once [facility] 08/11/24 Verified Every Shift 10:44 Oxygen By Nasal RT 08/11/24 Verified Cannula 10:44 Magnesium LAB 08/11/24 Verified 10:44 Magnesium Brendan PHA 08/11/24 Verified 10:45 Date of Service: Aug 11, 2024 Billing Provider: MAUREEN ASENCIO Common Visit Codes: [id number] INP/OBS CARE (HIGH) MAUREEN ASENCIO Aug 11, 2024 10:52
[2024-08-11] MEDS: InsuLIN REG 1unit/0.01ml Soln (100units/ml) SC SCH (11:30)
[2024-08-11] MEDS: ACCU-CHEK COMFORT CURVE STRIP VI SCH (11:31)
[2024-08-11] MEDS: MAGNESIUM SULFATE 1GM/100ML 100 ML IV ONE (11:43)
[2024-08-11 12:32] VITALS: BP 156/64; PULSE 88; RESP 16; TEMP 98.5; O2SAT 97
[2024-08-11] MEDS ORDERED: BUSP10TA31 (15:15)
[2024-08-11] MEDS ORDERED: OMEP1CAP70 (15:15)
[2024-08-11 15:45] LABS: HDL Cholesterol 44 mg/dL (40-59)
[2024-08-11 15:50] LABS: Amphetamine Screen, Urine Neg (NEGATIVE); Barbiturate Scree,Urine Neg (NEGATIVE); Benzodiazephine Screen, Urine Neg (NEGATIVE); Cannabinoid Screen, Urine Neg (NEGATIVE); Cocaine Screen, Urine Neg (NEGATIVE); Opiate Scree,Urine Neg (NEGATIVE); Phencyclidine Screen, Urine Neg (NEGATIVE)
[2024-08-11 15:51] LABS: Cholesterol 283 mg/dL (< 200); Triglycerides 405 mg/dL (< 150)
[2024-08-11 15:54] VITALS: BP 135/77; PULSE 76
[2024-08-11] MEDS: ACETAMINOPHEN 325 MG TAB PO PRN (16:00)
[2024-08-11 17:36] VITALS: BP 136/75; PULSE 75; RESP 14; TEMP 98.1; O2SAT 97
--- NOTE | 2024-08-11 19:41 | ECG ---
[facility] Test Date: 2024-08-11 Test Time: 09:02:16 Pat Name: JOHNNY HINES Department: er Room: [address] [place] [address] Gender: F Campus Interviews Intern: josephine : 1955 Requested By: RUCHI ORTEGA Order Number: [id number] Reading MD: Ramiro Limon Measurements Intervals [place] Rate: 84 P: 44 [place]: 162 QRS: 3 QRSD: 86 T: 24 QT: 384 QTc: 454 Interpretive Statements Sinus rhythm Electronically Signed On 08-13-2024 17:58:54 PST by Ramiro Limon Please click the below link to view image of tracing.
--- NOTE | 2024-08-11 19:41 | ECG ---
[facility] Test Date: 2024-08-11 Test Time: 08:08:31 Pat Name: JOHNNY HINES Department: er Room: [address] [place] [address] Gender: F Field Consultant: josephine : 1955 Requested By: RUCHI ORTEGA Order Number: [id number] Reading MD: Ramiro Limon Measurements Intervals [place] Rate: 88 P: 42 [place]: 150 QRS: 5 QRSD: 87 T: 33 QT: 390 QTc: 472 Interpretive Statements Sinus rhythm Borderline T wave abnormalities Electronically Signed On 08-13-2024 17:58:23 PST by Ramiro Limon Please click the below link to view image of tracing.
[2024-08-11] MEDS: ATORVASTATIN 20 MG TAB PO SCH (21:51)
[2024-08-11] MEDS ORDERED: ATORVASTATIN 20 MG TAB PO SCH (22:00)
[2024-08-12] MEDS: LORazepam 2MG/ML-1ML VIAL IV PRN (05:24)
[2024-08-12] MEDS: PANTOPRAZOLE 40 MG TAB PO SCH (06:09)
[2024-08-12 06:21] LABS: Anion Gap 6 (5-15); Carbon Dioxide 27 mmol/L (20-31); Chloride 107 mmol/L (98-107); Potassium 4.1 mmol/L (3.5-5.1); Sodium 140 mmol/L (136-145)
[2024-08-12 06:23] LABS: Calcium 10.1 mg/dL (8.7-10.4)
[2024-08-12 06:25] LABS: Basophils # (auto) 0 10 ^3/uL (0-0.2); Basophils % (auto) 0.4 % (0.0-2.0); Eosinophils # (auto) 0.1 10 ^3/uL (0-0.8); Hematocrit 40.5 % (36.0-46.0); Hemoglobin 13.8 g/dL (12.2-16.2); Lymphocytes # (auto) 2.7 10 ^3/uL (0.4-5.4); Lymphocytes % (auto) 40.6 % (10.0-50.0); Mean Corpuscular Hemoglobin 29.6 pg (28.0-32.0); Mean Corpuscular Hgb Conc. 34.1 g/dL (32.0-36.0); Mean Corpuscular Volume 86.8 fL (80.0-100.0); Monocytes # (auto) 0.5 10 ^3/uL (0-1.3); Monocytes % (auto) 7.3 % (0.0-12.0); Neutrophils # (auto) 3.3 10 ^3/uL (1.6-8.6); Neutrophils % (auto) 49.7 % (37.0-80.0); Nucleated Red Blood Cells % 0.1 %; Platelet Count (auto) 208 10^3/uL (140-450); Red Blood Cells 4.66 10^6/uL (4.0-5.20); Red Cell Distribution Width 13.7 % (11.8-14.3); White Blood Cell 6.7 10^3/uL (4.4-10.8)
[2024-08-12 06:28] LABS: BUN/Creatinine Ratio 14.6 (10.0-20.0); Blood Urea Nitrogen 12 mg/dL (9-23); Magnesium 2.4 mg/dL (1.6-2.6)
[2024-08-12 06:30] LABS: Glucose 121 mg/dL (74-106)
[2024-08-12] MEDS: hydroCHLOROthiazide 25 MG TAB PO SCH (07:16)
[2024-08-12 08:30] VITALS: BP 99/53; PULSE 73; RESP 17; TEMP 97.6; O2SAT 93
[2024-08-12 09:25] VITALS: BP 137/68; PULSE 94; RESP 19; TEMP 97.7; O2SAT 97
[2024-08-12] MEDS: ASPirin 81 mg TAB PO SCH (09:59)
[2024-08-12] MEDS: BENAZEPRIL HCL 10 MG TAB PO SCH (09:59)
[2024-08-12 13:00] VITALS: BP 117/71; PULSE 90; RESP 18; RESP 19; TEMP 97.9; O2SAT 97
--- NOTE | 2024-08-12 14:27 | DVHSR ---
APPROVED REPORT EXAM: Two-dimensional and M-mode echocardiogram with Doppler and color Doppler. Blood Pressure: 113/53 mmHg INDICATION Chest Pain DIMENSIONS LVDd4.5 (3.8-5.7cm)LA (2D)3.3 (1.9-4.0cm)Aortic Root3.4 (2.0-3.7cm) LVDs3.1 (2.5-4.0cm)LA (MM) (1.9-4.0cm)Aortic Cusp Exc1.9 (1.5-2.0cm) EF (%) 60.0 (55-70%)Rt. Atrium2.6 (1.9-4.0cm)Asc. Aorta cm IVSd1.1 (0.7-1.1cm)RV (D) (1.8-2.4cm) PWd1.2 (0.7-1.1cm) Mitral Valve MitralMitral Stenosis E wave0.55m/sMV Mean GR.1mmHg A wave0.75m/sMV Peak GR.3mmHg E/A ratio0.72D MVAcm2 DECEL [id number] 1/2 [id number] IVRTmsDop MVA2.65cm2 Aortic Valve Aortic ValveAortic Stenosis V10.93m/Deepthi Mean GR.3mmHg V21.09m/Deepthi Peak GR.5mmHg LVOT Diameter1.8 (1.8-2.4cm)Doppler AVA2.17cm2 AI P 1/2 Kwsc183.28ms Pulmonic Valve V20.53m/s Other Information Technically limited study due to body habitus. Conclusion lvef 55-60% by visual estimate mild lvh normal rv function left atrium enlarged no severe valve abnormalities noted
[2024-08-12 16:23] LABS: Erythrocyte Sedimentation Rate 11 mm/hr (0-20)
[2024-08-12 17:00] VITALS: BP 128/66; PULSE 86; RESP 18; TEMP 97.8; O2SAT 95
--- NOTE | 2024-08-12 17:07 | DVHPN2 ---
Subjective Patient continues to report having chest pain and back pain Reviewed: Care Plan, H&P, Labs, Medications Changes from previous H/P or p: No Changes General: Per HPI Cardiovascular: Chest Pain Musculoskeletal: shoulder pain, back pain Objective Vitals Vital Signs Date Time Temp Pulse Resp B/P (MAP) Pulse Ox O2 Delivery O2 Flow Rate FiO2 08/12/24 13:00 19 97 Room Air* 0 21 08/12/24 13:00 97.9 90 117/71 (86) 97.9 Intake/Output Intake and Output 08/12/24 07:00 Intake Total 720 ml Balance 720 ml Intake Oral 720 ml # Voids 3 General Appearance: Alert, Oriented X3, Cooperative, mild distress HEENT: Atraumatic, PERRLA Lungs: Clear to auscultation, Normal air movement Cardiovascular: Normal S1, Normal S2 Abdomen: Normal bowel sounds, Soft, No tenderness, No hepatospenomegaly Rectal: Deferred Musculoskeletal: Normal sensory function, Normal motor function Skin: Dry, Intact Psych/Mental Status: Mental status NL, Mood NL Medications Current Medications Medications Dose Ordered Sig/Berto Route Start Time Stop Time Status Last Admin Dose Admin Diagnostic Test (Pha) 1 strip ACHS 08/11/24 11:30 08/12/24 11:29 1 STRIP Insulin Human Regular ACHS SC 08/11/24 11:30 Dextrose 50 ml UD PRN IV 08/11/24 10:45 Aspirin 81 mg DAILY PO 08/12/24 10:00 08/12/24 09:59 81 MG Acetaminophen 650 mg Q6HP PRN PO 08/11/24 10:45 08/12/24 16:09 650 MG Ondansetron HCl 4 mg Q4HP PRN IV 08/11/24 10:45 Nitroglycerin 0.4 mg Q5MINP PRN SL 08/11/24 10:45 Morphine Sulfate 2 mg Q30M PRN IV 08/11/24 10:45 Benazepril HCl 10 mg DAILY PO 08/12/24 10:00 08/12/24 09:59 10 MG Hydrochlorothiazide 25 mg QAM PO 08/12/24 07:00 08/12/24 07:16 25 MG Pantoprazole Sodium 40 mg DAILY@0600 PO 08/12/24 06:00 08/12/24 06:09 40 MG Atorvastatin Calcium 10 mg HS PO 08/11/24 22:00 08/11/24 21:51 10 MG Lorazepam 1 mg Q8HP PRN IV 08/12/24 05:15 08/12/24 05:24 1 MG Laboratory Results Laboratory Tests 08/12/24 04:38 Chemistry Test 08/12/24 04:38 Calcium Level 10.1 mg/dL (8.7-10.4) Magnesium Level 2.4 mg/dL (1.6-2.6) Urinalysis Test 08/11/24 09:00 Urine Color Colorless (Yellow) Urine Clarity Clear (Clear) Urine pH 5.0 (5.0-9.0) Urine Specific [place] 1.009 (1.001-1.035) Urine Protein Negative (Negative) Urine Ketones Negative (Negative) Urine Blood Negative /uL (Negative) Urine Nitrite Negative (Negative) Urine Bilirubin Negative (Negative) Urine Urobilinogen Normal mg/dL (Negative) Urine Leukocyte Esterase Negative /uL (Negative) Urine RBC 1 /hpf (0 - 4) Urine Microscopic WBC < 1 /HPF (0-5) Urine Squamous Epithelial Cells Few /hpf (<5) Urine Bacteria None seen /hpf (None Seen) Urine Glucose Normal mg/dL (Normal) Labs and/or images reviewed: Labs reviewed by me, Image(s) reviewed by me Assessment/Plan Assessment/Plan Impression: -rule out ACS -primary hypertension -dyslipidemia -anxiety disorder -diabetes mellitus: A1c 6.4 Plan: -cardiology consultation -echocardiogram: Reviewed and unremarkable -two ESR, CRP -regular insulin sliding scale -antihypertensives -repeat labs in a.m. Total time spent with patient discussing and formulating plan of care: 35 minutes. This medical document was created using an electronic medical record system with [employer] dictation system. Although this document has been carefully reviewed, there may still be some phonetic and typographical errors. These areas are purely typographical due to imperfections of the software programs, and do not reflect any compromise in the patient's medical care. Plan discussed with: Patient, Other (RN) My Orders Orders - KEISHA BIANCHI NP Procedure Category Date Status Time * Cardiology Consult CONS 08/12/24 Transmitted 15:21 Date of Service: Aug 13, 2024 Billing Provider: KEISHA BIANCHI NP Common Visit Codes: [id number] INP/OBS CARE(HIGH) KEISHA BIANCHI NP Aug 12, 2024 17:07
[2024-08-12 20:00] VITALS: PULSE 78; PULSE 88; RESP 18; O2SAT 95
[2024-08-12 21:00] VITALS: BP 129/59; PULSE 88; RESP 18; TEMP 97.7; O2SAT 95
[2024-08-13] VITALS (8 sets, daily range): BP systolic 101–135; BP diastolic 57–66; PULSE 70–118; RESP 12–24; TEMP 96.1–98.2; O2SAT 95–97
[2024-08-13 09:19] LABS: Chloride 104 mmol/L (98-107); Sodium 138 mmol/L (136-145)
[2024-08-13 09:20] LABS: Anion Gap 8 (5-15); Calcium 10.2 mg/dL (8.7-10.4); Carbon Dioxide 26 mmol/L (20-31)
[2024-08-13 09:21] LABS: Potassium 3.1 mmol/L (3.5-5.1)
[2024-08-13 09:25] LABS: BUN/Creatinine Ratio 16.5 (10.0-20.0); Blood Urea Nitrogen 14 mg/dL (9-23)
[2024-08-13 09:26] LABS: CRP High Sensitivity 0.44 mg/dL (<1.0); Glucose 153 mg/dL (74-106)
[2024-08-13 09:59] LABS: Erythrocyte Sedimentation Rate 11 mm/hr (0-20)
--- NOTE | 2024-08-13 13:15 | DVHPN2 ---
Subjective The patient is seen and examined at bedside. No complaint today except minimal chest pain. Reviewed: Care Plan, H&P, Labs, Medications Changes from previous H/P or p: No Changes General: Per HPI Cardiovascular: Chest Pain Musculoskeletal: shoulder pain, back pain Objective Vitals Vital Signs Date Time Temp Pulse Resp B/P (MAP) Pulse Ox O2 Delivery O2 Flow Rate FiO2 08/13/24 09:00 98.0 70 12 129/65 (86) 97 98.0 08/13/24 08:00 Room Air* 0 21 Intake/Output Intake and Output 08/13/24 07:00 Intake Total 1200 ml Balance 1200 ml Intake Oral 1200 ml # Voids 11 # Bowel Movements 3 General Appearance: Alert, Oriented X3, Cooperative, mild distress HEENT: Atraumatic, PERRLA Lungs: Clear to auscultation, Normal air movement Cardiovascular: Normal S1, Normal S2 Abdomen: Normal bowel sounds, Soft, No tenderness, No hepatospenomegaly Rectal: Deferred Musculoskeletal: Normal sensory function, Normal motor function Skin: Dry, Intact Psych/Mental Status: Mental status NL, Mood NL Medications Current Medications Medications Dose Ordered Sig/Berto Route Start Time Stop Time Status Last Admin Dose Admin Diagnostic Test (Pha) 1 strip ACHS 08/11/24 11:30 08/13/24 11:47 1 STRIP Insulin Human Regular ACHS SC 08/11/24 11:30 Dextrose 50 ml UD PRN IV 08/11/24 10:45 Aspirin 81 mg DAILY PO 08/12/24 10:00 08/13/24 08:56 81 MG Acetaminophen 650 mg Q6HP PRN PO 08/11/24 10:45 08/13/24 08:56 650 MG Ondansetron HCl 4 mg Q4HP PRN IV 08/11/24 10:45 Nitroglycerin 0.4 mg Q5MINP PRN SL 08/11/24 10:45 Morphine Sulfate 2 mg Q30M PRN IV 08/11/24 10:45 Benazepril HCl 10 mg DAILY PO 08/12/24 10:00 08/13/24 08:55 10 MG Hydrochlorothiazide 25 mg QAM PO 08/12/24 07:00 08/13/24 05:33 25 MG Pantoprazole Sodium 40 mg DAILY@0600 PO 08/12/24 06:00 08/13/24 05:32 40 MG Atorvastatin Calcium 10 mg HS PO 08/11/24 22:00 08/12/24 21:08 10 MG Lorazepam 1 mg Q8HP PRN IV 08/12/24 05:15 08/12/24 05:24 1 MG Laboratory Results Laboratory Tests 08/12/24 04:38 08/13/24 08:43 Chemistry Test 08/13/24 08:43 Calcium Level 10.2 mg/dL (8.7-10.4) Coagulation Test 08/13/24 08:43 D-Dimer, Quantitative 0.23 mg/L FEU (0.0-0.49) Urinalysis Test 08/11/24 09:00 Urine Color Colorless (Yellow) Urine Clarity Clear (Clear) Urine pH 5.0 (5.0-9.0) Urine Specific [place] 1.009 (1.001-1.035) Urine Protein Negative (Negative) Urine Ketones Negative (Negative) Urine Blood Negative /uL (Negative) Urine Nitrite Negative (Negative) Urine Bilirubin Negative (Negative) Urine Urobilinogen Normal mg/dL (Negative) Urine Leukocyte Esterase Negative /uL (Negative) Urine RBC 1 /hpf (0 - 4) Urine Microscopic WBC < 1 /HPF (0-5) Urine Squamous Epithelial Cells Few /hpf (<5) Urine Bacteria None seen /hpf (None Seen) Urine Glucose Normal mg/dL (Normal) Labs and/or images reviewed: Labs reviewed by me Assessment/Plan Assessment/Plan -rule out ACS -primary hypertension -dyslipidemia -anxiety disorder -diabetes mellitus: A1c 6.4 Plan: -cardiology consultation , waiting for Dr. Fuentes to see the patient -echocardiogram: Reviewed and unremarkable -continuing regular insulin sliding scale -antihypertensives This medical document was created using an electronic medical record system with M*M flurency direct computerized dictation system. Although this document has been carefully reviewed, there may still be some phonetic and typographical errors. These areas are purely typographical due to imperfections of the software programs, and do not reflect any compromise in the patient's medical care. Plan discussed with: Patient Date of Service: Aug 13, 2024 Billing Provider: STALIN CHEATHAM MD Common Visit Codes: [id number] INP/OBS CARE(HIGH) STALIN CHEATHAM MD Aug 13, 2024 13:15
[2024-08-14] VITALS (7 sets, daily range): BP systolic 96–126; BP diastolic 58–73; PULSE 65–92; RESP 15–18; TEMP 97.4–98.3; O2SAT 95–97
--- NOTE | 2024-08-14 08:40 | DVHINCON2 ---
CHASIDY MENA [facility] 08/14/24 0840: Date Seen: Aug 14, 2024 Referring Physician JOSE F Lee Reason for Consultation ACS History of Present Illness This is a Guamanian-speaking 69-year-old female patient who presents to emergency room with chief complaint of chest pain for 1.5 months. The patient reports that the chest pain has been progressively getting worse which is why she decided to come to the emergency room for further evaluation. She describes the pain as provoked by exertion, intermittent, heavy in nature, left-sided with radiation to her left upper back area. She denies any associated symptoms. She denies any alleviating or precipitating factors. Initial twelve lead electrocardiogram reveals normal sinus rhythm without any significant ST segment changes. Troponin levels have been negative. Significant past medical history includes hypertension, dyslipidemia, type 2 diabetes mellitus, GERD, and anx iety. The patient reports that she has seen a fuel distribution system operator in the outpatient setting named . She reports having an echocardiogram done at his office but denies any further cardiac workup. Past Medical History Past medical history reviewed. No other significant than mentioned above. Past Surgical History Cholecystectomy Family History: Hypertension G8 MOTHER Family History Family history reviewed. Social History Denies the use of tobacco, alcohol or illicit drugs. Allergies: Coded Allergies: NO KNOWN ALLERGIES (Unverified , 08/11/24) Home Meds Active Scripts Sucralfate (CARAFATE SUSP) 1 Gm/10 Ml Ss, 1 GM PO TID@0600,1130,2200 for 90 Days, #90 ML Prov:JIMBO CRAWFORD RESIDENT 11/24/23 Pantoprazole Sodium Sesquihydr (Pantoprazole Sodium) 40 Mg Tab, 40 MG PO DAILY@0600 for 90 Days, #90 TAB Prov:JIMBO CRAWFORD RESIDENT 11/24/23 Pantoprazole Sodium Sesquihydr (Protonix) 40 Mg Tab, 40 MG PO DAILY PRN for 30 Days, #30 TAB Prov:GATO PRETTY MD 08/15/23 Reported Medications Omeprazole (Omeprazole Dr) 20 Mg Cap, 1 DAILY 08/11/24 Buspirone HCl (Buspirone HCl) 10 Mg Tab, 1 08/11/24 Metformin Hydrochloride (Metformin Hcl) 500 Mg Tab, 250 MG PO DAILY for 30 Days, MG 11/22/23 Hctz (Hydrochlorothiazide) 25 Mg Tab, 1 TAB PO QAM 11/22/23 Benazepril Hcl (Benazepril Hcl) 10 Mg Tab, 1 TAB PO DAILY 11/22/23 Atorvastatin Calcium (ATORVASTATIN CALCIUM) 10 Mg Tab, 1 TAB PO DAILY 11/22/23 Home Meds Home medications reviewed. Current Medications Current Medications Medications (Trade) Dose Ordered Sig/Berto Route PRN Reason Start Time Stop Time Status Last Admin Acetaminophen/ Hydrocodone Bitart ([place] 5/325MG Tab) 1 tab Q6HPRN PRN PO MODERATE PAIN (4-6 PAIN SCALE) 08/13/24 16:15 Review of Systems Constitutional: No symptom reported Ears, Nose, & Throat: No symptom reported Eyes: No symptom reported Neurological: No symptoms reported Pulmonary/Respiratory: No symptoms reported Cardiovascular: Chest pain Gastrointestinal: No symptom reported Genitourinary: No symptom reported Musculoskeletal: No symptom reported Skin: No symptom reported Psychiatric: No symptom reported Endocrine: No symptom reported Hematologic/Lymphatic: No symptom reported Vital Signs Vital Signs Date Time Temp Pulse Resp B/P (MAP) Pulse Ox O2 Delivery O2 Flow Rate FiO2 08/14/24 08:29 126/73 08/14/24 07:40 Room Air* 0 21 08/14/24 05:00 97.8 87 18 97 97.8 Physical Exam General Appearance: Cooperative. Well-developed. Well-nourished. No acute distress. Pulmonary/Respiratory: Clear, bilateral breaths sounds. Cardiovascular/Chest: Regular rate and rhythm. Peripheral Pulses: 2+ Radial (R). 2+ Radial (L). 2+ Pedal (R). 2+ Pedal (L) Abdominal Exam: Normal bowel sounds. Ankle Exam: Negative ankle edema Lower extremities: Negative lower extremity edema Neuro/Mental Status: A/OX4, coherent. Thoughts/Psych: Normal thought pattern. Appropriate mood and affect. Good judgment and insight. Appearance: No acute distress. Skin Exam: Normal inspection. Normal color. Warm and dry. Labs/Diagnostic Data Labs Test 08/13/24 21:13 08/13/24 08:43 08/12/24 04:38 08/11/24 09:00 Range/Units POC Glucose 155 H 70-106 mg/dl Erythrocyte Sedimentation Rate 11 0-20 mm/hr D-Dimer, Quantitative 0.23 0.0-0.49 mg/L FEU Sodium Level 138 136-145 mmol/L Potassium Level 3.1 L 3.5-5.1 mmol/L Chloride Level 104 98-107 mmol/L Carbon Dioxide Level 26 20-31 mmol/L Anion Gap 8 5-15 Blood Urea Nitrogen 14 9-23 mg/dL Creatinine 0.85 0.550-1.02 mg/dL Glomerular Filtration Rate Calc 75 >90 mL/min BUN/Creatinine Ratio 16.5 10.0-20.0 Serum Glucose 153 H 74-106 mg/dL Calcium Level 10.2 8.7-10.4 mg/dL Troponin I High Sensitivity < 3 L </=34 ng/L C-Reactive Protein High Sensitivity 0.44 <1.0 mg/dL White Blood Count 6.7 4.4-10.8 10^3/uL Red Blood Count 4.66 4.0-5.20 10^6/uL Hemoglobin 13.8 12.2-16.2 g/dL Hematocrit 40.5 36.0-46.0 % Mean Corpuscular Volume 86.8 80.0-100.0 fL Mean Corpuscular Hemoglobin 29.6 28.0-32.0 pg Mean Corpuscular Hemoglobin Concent 34.1 32.0-36.0 g/dL Red Cell Distribution Width 13.7 11.8-14.3 % Platelet Count 208 140-450 10^3/uL Mean Platelet Volume 9.3 6.9-10.8 fL Neutrophils (%) (Auto) 49.7 37.0-80.0 % Lymphocytes (%) (Auto) 40.6 10.0-50.0 % Monocytes (%) (Auto) 7.3 0.0-12.0 % Eosinophils (%) (Auto) 2.0 0.0-7.0 % Basophils (%) (Auto) 0.4 0.0-2.0 % Neutrophils # (Auto) 3.3 1.6-8.6 10 ^3/uL Lymphocytes # (Auto) 2.7 0.4-5.4 10 ^3/uL Monocytes # (Auto) 0.5 0-1.3 10 ^3/uL Eosinophils # (Auto) 0.1 0-0.8 10 ^3/uL Basophils # (Auto) 0 0-0.2 10 ^3/uL Nucleated Red Blood Cells 0.1 % Magnesium Level 2.4 1.6-2.6 mg/dL Urine Color Colorless Yellow Urine Clarity Clear Clear Urine pH 5.0 5.0-9.0 Urine Specific [place] 1.009 1.001-1.035 Urine Protein Negative Negative Urine Ketones Negative Negative Urine Blood Negative Negative /uL Urine Nitrite Negative Negative Urine Bilirubin Negative Negative Urine Urobilinogen Normal Negative mg/dL Urine Leukocyte Esterase Negative Negative /uL Urine RBC 1 0 - 4 /hpf Urine Microscopic WBC < 1 0-5 /HPF Urine Squamous Epithelial Cells Few <5 /hpf Urine Bacteria None seen None Seen /hpf Urine Glucose Normal Normal mg/dL Urine Opiates Screen Neg NEGATIVE Urine Fentanyl Screen Neg NEGATIVE Urine Barbiturates Screen Neg NEGATIVE Urine Phencyclidine Screen Neg NEGATIVE Urine Amphetamines Screen Neg NEGATIVE Urine Benzodiazepines Screen Neg NEGATIVE Urine Cocaine Screen Neg NEGATIVE Urine Cannabinoids Screen Neg NEGATIVE Test 08/11/24 08:28 Range/Units Hemoglobin A1c 6.4 H <5.7 % A1C Triglycerides Level 405 H < 150 mg/dL Cholesterol Level 283 H < 200 mg/dL LDL Cholesterol < 100 mg/dL HDL Cholesterol 44 40-59 mg/dL Thyroid Stimulating Hormone (TSH) 2.70 0.55-4.78 uIU/mL Assessment Chest pain, rule out coronary ischemia Hypertension Dyslipidemia, uncontrolled Type 2 diabetes mellitus Hypokalemia GERD Anxiety Plan/Recommendation We will continue with the following plan/recommendations (Dr. Hernandez): * Transthoracic echocardiogram reveals EF 55-60% * Chest pain protocol * HEART score: 4 points (moderate score) * Blood pressure control * Aggressive statin therapy, up-titrated dose * Close Cardiac surveillance * Nuclear stress test Patient seen and examined at bedside with . Given the patient's clinical presentation and significant comorbidities, the patient was offered a nuclear stress test. Patient was agreeable to plan. Patient is scheduled for nuclear stress test at 1st availability on 08/15/2024. Thank you for allowing us to care for this patient. Please call with any questions or concerns. Critical care time spent: 42 minutes This medical document was created using an electronic medical record system with voice recognition software and computerized dictation system. Although this document has been carefully reviewed, there might still be some phonetic and typographical errors. Occasional wrong-word or ``sound-alike substitutions may have occurred due to the inherent limitations of voice recognition software. These areas are purely typographical due to imperfections of the software programs and do not reflect any compromise in the patient's medical care. Please read the chart carefully and recognize, using context, where these substitutions have occurred. Plan discussed with: Patient NYHA Physical activity limitations: NA Date of Service: Aug 14, 2024 Billing Provider: CHASIDY MENA Cardiology Common Codes: [id number] INP/OBS CARE (High) Cardiology Consultation Codes: [id number] CONSULT <45MIN JOSH HERNANDEZ MD 08/15/24 0831: Family History: Hypertension G8 MOTHER Allergies: Coded Allergies: NO KNOWN ALLERGIES (Unverified , 08/11/24) Home Meds Active Scripts Sucralfate (CARAFATE SUSP) 1 Gm/10 Ml Ss, 1 GM PO TID@0600,1130,2200 for 90 Days, #90 ML Prov:JIMBO CRAWFORD RESIDENT 11/24/23 Pantoprazole Sodium Sesquihydr (Pantoprazole Sodium) 40 Mg Tab, 40 MG PO DAILY@0600 for 90 Days, #90 TAB Prov:JIMBO CRAWFORD RESIDENT 11/24/23 Pantoprazole Sodium Sesquihydr (Protonix) 40 Mg Tab, 40 MG PO DAILY PRN for 30 Days, #30 TAB Prov:GATO PRETTY MD 08/15/23 Reported Medications Omeprazole (Omeprazole Dr) 20 Mg Cap, 1 DAILY 08/11/24 Buspirone HCl (Buspirone HCl) 10 Mg Tab, 1 08/11/24 Metformin Hydrochloride (Metformin Hcl) 500 Mg Tab, 250 MG PO DAILY for 30 Days, MG 11/22/23 Hctz (Hydrochlorothiazide) 25 Mg Tab, 1 TAB PO QAM 11/22/23 Benazepril Hcl (Benazepril Hcl) 10 Mg Tab, 1 TAB PO DAILY 11/22/23 Atorvastatin Calcium (ATORVASTATIN CALCIUM) 10 Mg Tab, 1 TAB PO DAILY 11/22/23 Plan/Recommendation 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
[2024-08-14] MEDS: ONDANSETRON HCL 4 MG/2 ML VIAL IV PRN (09:40)
--- NOTE | 2024-08-14 12:58 | DVHPN2 ---
Subjective The patient is seen and examined at bedside. Still complain of chest pain and heart palpitation. Reviewed: Care Plan, H&P, Labs, Medications Changes from previous H/P or p: No Changes General: Per HPI Cardiovascular: Chest Pain Musculoskeletal: shoulder pain, back pain Objective Vitals Vital Signs Date Time Temp Pulse Resp B/P (MAP) Pulse Ox O2 Delivery O2 Flow Rate FiO2 08/14/24 12:53 98.0 65 15 110/58 (75) 96 98.0 08/14/24 07:40 Room Air* 0 21 Intake/Output Intake and Output 08/14/24 07:00 Intake Total 2315 ml Balance 2315 ml Intake Oral 2315 ml # Voids 8 # Bowel Movements 7 General Appearance: Alert, Oriented X3, Cooperative, mild distress HEENT: Atraumatic, PERRLA Lungs: Clear to auscultation, Normal air movement Cardiovascular: Normal S1, Normal S2 Abdomen: Normal bowel sounds, Soft, No tenderness, No hepatospenomegaly Rectal: Deferred Musculoskeletal: Normal sensory function, Normal motor function Skin: Dry, Intact Psych/Mental Status: Mental status NL, Mood NL Medications Current Medications Medications Dose Ordered Sig/Berto Route Start Time Stop Time Status Last Admin Dose Admin Diagnostic Test (Pha) 1 strip ACHS 08/11/24 11:30 08/14/24 10:57 1 STRIP Insulin Human Regular ACHS SC 08/11/24 11:30 Dextrose 50 ml UD PRN IV 08/11/24 10:45 Aspirin 81 mg DAILY PO 08/12/24 10:00 08/14/24 08:28 81 MG Acetaminophen 650 mg Q6HP PRN PO 08/11/24 10:45 08/13/24 15:41 650 MG Ondansetron HCl 4 mg Q4HP PRN IV 08/11/24 10:45 08/14/24 09:40 4 MG Nitroglycerin 0.4 mg Q5MINP PRN SL 08/11/24 10:45 Morphine Sulfate 2 mg Q30M PRN IV 08/11/24 10:45 Benazepril HCl 10 mg DAILY PO 08/12/24 10:00 08/14/24 08:29 10 MG Hydrochlorothiazide 25 mg QAM PO 08/12/24 07:00 08/13/24 05:33 25 MG Pantoprazole Sodium 40 mg DAILY@0600 PO 08/12/24 06:00 08/14/24 05:16 40 MG Lorazepam 1 mg Q8HP PRN IV 08/12/24 05:15 08/13/24 16:41 1 MG Acetaminophen/ Hydrocodone Bitart 1 tab Q6HPRN PRN PO 08/13/24 16:15 Atorvastatin Calcium 80 mg HS PO 08/14/24 22:00 Laboratory Results Laboratory Tests 08/12/24 04:38 08/13/24 08:43 Urinalysis Test 08/11/24 09:00 Urine Color Colorless (Yellow) Urine Clarity Clear (Clear) Urine pH 5.0 (5.0-9.0) Urine Specific [place] 1.009 (1.001-1.035) Urine Protein Negative (Negative) Urine Ketones Negative (Negative) Urine Blood Negative /uL (Negative) Urine Nitrite Negative (Negative) Urine Bilirubin Negative (Negative) Urine Urobilinogen Normal mg/dL (Negative) Urine Leukocyte Esterase Negative /uL (Negative) Urine RBC 1 /hpf (0 - 4) Urine Microscopic WBC < 1 /HPF (0-5) Urine Squamous Epithelial Cells Few /hpf (<5) Urine Bacteria None seen /hpf (None Seen) Urine Glucose Normal mg/dL (Normal) Labs and/or images reviewed: Labs reviewed by me Assessment/Plan Assessment/Plan -rule out ACS -primary hypertension -dyslipidemia -anxiety disorder -diabetes mellitus: A1c 6.4 Plan: -cardiology consultation , waiting for Dr. Fuentes to see the patient -echocardiogram: Reviewed and unremarkable -continuing regular insulin sliding scale -antihypertensives -[place] p.r.n. for pain This medical document was created using an electronic medical record system with M*M flurency direct computerized dictation system. Although this document has been carefully reviewed, there may still be some phonetic and typographical errors. These areas are purely typographical due to imperfections of the software programs, and do not reflect any compromise in the patient's medical care. Plan discussed with: Patient My Orders Orders - STALIN CHEATHAM MD Procedure Category Date Status Time Hydrocodone-Acet PHA 08/13/24 In Process 5/325mg Tab ([place] 16:15 Date of Service: Aug 14, 2024 Billing Provider: STALIN CHEATHAM MD Common Visit Codes: [id number] INP/OBS CARE(HIGH) STALIN CHEATHAM MD Aug 14, 2024 12:57
[2024-08-14 13:25] LABS: Basophils # (auto) 0 10 ^3/uL (0-0.2); Basophils % (auto) 0.3 % (0.0-2.0); Eosinophils # (auto) 0.1 10 ^3/uL (0-0.8); Eosinophils % (auto) 0.7 % (0.0-7.0); Hematocrit 43.1 % (36.0-46.0); Hemoglobin 14.4 g/dL (12.2-16.2); Lymphocytes # (auto) 2.2 10 ^3/uL (0.4-5.4); Lymphocytes % (auto) 26.9 % (10.0-50.0); Mean Corpuscular Hemoglobin 28.9 pg (28.0-32.0); Mean Corpuscular Hgb Conc. 33.5 g/dL (32.0-36.0); Mean Corpuscular Volume 86.2 fL (80.0-100.0); Monocytes # (auto) 0.6 10 ^3/uL (0-1.3); Neutrophils # (auto) 5.2 10 ^3/uL (1.6-8.6); Neutrophils % (auto) 65.1 % (37.0-80.0); Platelet Count (auto) 232 10^3/uL (140-450); Red Cell Distribution Width 13.3 % (11.8-14.3)
[2024-08-14 13:31] LABS: Anion Gap 5 (5-15); Carbon Dioxide 29 mmol/L (20-31); Chloride 104 mmol/L (98-107); Potassium 3.7 mmol/L (3.5-5.1); Sodium 138 mmol/L (136-145)
[2024-08-14 13:32] LABS: Calcium 10.1 mg/dL (8.7-10.4)
[2024-08-14 13:37] LABS: Blood Urea Nitrogen 16 mg/dL (9-23); Glucose 82 mg/dL (74-106)
[2024-08-14] MEDS: HYDROcodone-ACET 5/325MG TAB PO PRN (18:11)
[2024-08-14] MEDS: ATORVASTATIN 20 MG TAB PO SCH (22:28)
[2024-08-15] VITALS (7 sets, daily range): BP systolic 100–121; BP diastolic 54–64; PULSE 69–96; RESP 16–20; TEMP 97.7–98.6; O2SAT 95–98
[2024-08-15 06:39] LABS: Basophils # (auto) 0 10 ^3/uL (0-0.2); Basophils % (auto) 0.4 % (0.0-2.0); Eosinophils # (auto) 0.1 10 ^3/uL (0-0.8); Eosinophils % (auto) 1.4 % (0.0-7.0); Hematocrit 40.2 % (36.0-46.0); Hemoglobin 13.3 g/dL (12.2-16.2); Lymphocytes # (auto) 2.4 10 ^3/uL (0.4-5.4); Lymphocytes % (auto) 32.1 % (10.0-50.0); Mean Corpuscular Hemoglobin 28.5 pg (28.0-32.0); Mean Corpuscular Hgb Conc. 33.2 g/dL (32.0-36.0); Mean Corpuscular Volume 85.9 fL (80.0-100.0); Monocytes # (auto) 0.5 10 ^3/uL (0-1.3); Monocytes % (auto) 6.8 % (0.0-12.0); Neutrophils # (auto) 4.4 10 ^3/uL (1.6-8.6); Neutrophils % (auto) 59.3 % (37.0-80.0); Platelet Count (auto) 201 10^3/uL (140-450); Red Blood Cells 4.68 10^6/uL (4.0-5.20); Red Cell Distribution Width 13.5 % (11.8-14.3); White Blood Cell 7.4 10^3/uL (4.4-10.8)
[2024-08-15 06:50] LABS: Anion Gap 9 (5-15); Carbon Dioxide 27 mmol/L (20-31); Chloride 103 mmol/L (98-107); Potassium 3.8 mmol/L (3.5-5.1); Sodium 139 mmol/L (136-145)
[2024-08-15 06:56] LABS: BUN/Creatinine Ratio 16.5 (10.0-20.0); Blood Urea Nitrogen 15 mg/dL (9-23)
[2024-08-15 07:02] LABS: Glucose 112 mg/dL (74-106)
[2024-08-15] MEDS: REGADENOSON 0.4 MG/5 ML SYRG IV ONE ×2 (09:35)
--- NOTE | 2024-08-15 10:26 | DVHPN2 ---
Subjective Patient reporting having nausea Reviewed: Care Plan, H&P, Labs, Medications Changes from previous H/P or p: No Changes General: Per HPI Cardiovascular: Chest Pain Musculoskeletal: shoulder pain, back pain Objective Vitals Vital Signs Date Time Temp Pulse Resp B/P (MAP) Pulse Ox O2 Delivery O2 Flow Rate FiO2 08/15/24 09:00 97.7 79 18 121/63 (82) 95 97.7 08/15/24 07:45 Room Air* 0 21 Intake/Output Intake and Output 08/15/24 07:00 Intake Total 2240 ml Balance 2240 ml Intake Oral 2240 ml # Voids 8 # Bowel Movements 1 General Appearance: Alert, Oriented X3, Cooperative, mild distress HEENT: Atraumatic, PERRLA Lungs: Clear to auscultation, Normal air movement Cardiovascular: Normal S1, Normal S2 Abdomen: Normal bowel sounds, Soft, No tenderness, No hepatospenomegaly Rectal: Deferred Musculoskeletal: Normal sensory function, Normal motor function Skin: Dry, Intact Psych/Mental Status: Mental status NL, Mood NL Medications Current Medications Medications Dose Ordered Sig/Berto Route Start Time Stop Time Status Last Admin Dose Admin Diagnostic Test (Pha) 1 strip ACHS 08/11/24 11:30 08/15/24 06:23 1 STRIP Insulin Human Regular ACHS SC 08/11/24 11:30 Dextrose 50 ml UD PRN IV 08/11/24 10:45 Aspirin 81 mg DAILY PO 08/12/24 10:00 08/14/24 08:28 81 MG Acetaminophen 650 mg Q6HP PRN PO 08/11/24 10:45 08/13/24 15:41 650 MG Ondansetron HCl 4 mg Q4HP PRN IV 08/11/24 10:45 08/15/24 10:00 4 MG Nitroglycerin 0.4 mg Q5MINP PRN SL 08/11/24 10:45 Morphine Sulfate 2 mg Q30M PRN IV 08/11/24 10:45 Benazepril HCl 10 mg DAILY PO 08/12/24 10:00 08/14/24 08:29 10 MG Hydrochlorothiazide 25 mg QAM PO 08/12/24 07:00 08/13/24 05:33 25 MG Pantoprazole Sodium 40 mg DAILY@0600 PO 08/12/24 06:00 08/15/24 06:23 40 MG Lorazepam 1 mg Q8HP PRN IV 08/12/24 05:15 08/13/24 16:41 1 MG Acetaminophen/ Hydrocodone Bitart 1 tab Q6HPRN PRN PO 08/13/24 16:15 08/14/24 18:11 1 TAB Atorvastatin Calcium 80 mg HS PO 08/14/24 22:00 08/14/24 22:28 80 MG Laboratory Results Laboratory Tests 08/15/24 05:51 Chemistry Test 08/14/24 12:45 08/15/24 05:51 Calcium Level 10.1 mg/dL (8.7-10.4) 10.0 mg/dL (8.7-10.4) Urinalysis Test 08/11/24 09:00 Urine Color Colorless (Yellow) Urine Clarity Clear (Clear) Urine pH 5.0 (5.0-9.0) Urine Specific [place] 1.009 (1.001-1.035) Urine Protein Negative (Negative) Urine Ketones Negative (Negative) Urine Blood Negative /uL (Negative) Urine Nitrite Negative (Negative) Urine Bilirubin Negative (Negative) Urine Urobilinogen Normal mg/dL (Negative) Urine Leukocyte Esterase Negative /uL (Negative) Urine RBC 1 /hpf (0 - 4) Urine Microscopic WBC < 1 /HPF (0-5) Urine Squamous Epithelial Cells Few /hpf (<5) Urine Bacteria None seen /hpf (None Seen) Urine Glucose Normal mg/dL (Normal) Labs and/or images reviewed: Labs reviewed by me, Image(s) reviewed by me Assessment/Plan Assessment/Plan Impression: -rule out ACS -primary hypertension -dyslipidemia -anxiety disorder -diabetes mellitus: A1c 6.4 Plan: -cardiology consultation : Plans for stress test today. -echocardiogram: Reviewed and unremarkable -regular insulin sliding scale -antihypertensives -further course of care per findings from nuclear stress test Total time spent with patient discussing and formulating plan of care: 35 minutes. This medical document was created using an electronic medical record system with [employer] dictation system. Although this document has been carefully reviewed, there may still be some phonetic and typographical errors. These areas are purely typographical due to imperfections of the software programs, and do not reflect any compromise in the patient's medical care. Plan discussed with: Patient, Other (RN) Date of Service: Aug 15, 2024 Billing Provider: KEISHA BIANCHI NP Common Visit Codes: [id number] INP/OBS CARE(HIGH) KEISHA BIANCHI NP Aug 15, 2024 10:26
--- NOTE | 2024-08-15 15:02 | DVHSR ---
APPROVED REPORT Exam: Nuclear Stress Test BMI: 0 Stress Test Details HR Max Heart Rate (APMHR): 152.946725 bpm Target HR (85% APMHR): 129.511318 bpm BP ECG Stress ECG Conclusion lvef 77% normal perfusion scan no severe ischemia noted NM EXAM: Myocardial Perfusion REST/STRESS Imaging Protocol: Rest Tc-99m/Stress Tc-99m 1 day Resting Data Rest SPECT myocardial perfusion imaging was performed in supine position 60 minutes following the int ravenous injection of 14 mCi of Tc-99m Sestamibi. Time of rest injection: 0748 Time of rest imagin Administration Route: IV Administration Site: Right Arm Pharmacologic Stress Pharmacologic stress test was performed by injecting Regadenoson 0.4 mg IV push followed by the intra venous injection of 31 mCi of Tc-99m Sestamibi. Time of stress injection: 0937 Time of stress imagin Administration Route: IV Administration Site: Right Arm Gated Stress SPECT was performed 60 minutes after stress injection. The images were gated to evaluate regional wall motion and calculate left ventricular ejection fracti on. Stress only was performed in the Supine position. Nuclear Conclusion lvef 77% normal perfusion scan no severe ischemia noted
--- NOTE | 2024-08-15 15:44 | DVHPN2 ---
Progress Note Date Seen: Aug 15, 2024 Medical Necessity Reason Pt with a Central, PICC or Fol: No Subjective Patient reports: Feels better Objective vital signs Vital Sign Date Time Temp Pulse Resp B/P (MAP) Pulse Ox O2 Delivery O2 Flow Rate FiO2 08/15/24 13:02 97.9 86 18 113/54 (73) 95 97.9 08/15/24 07:45 Room Air* 0 21 Total Intake and Output 08/14/24 08/14/24 08/15/24 15:00 23:00 07:00 Intake Total 2000 ml 240 ml Balance 2000 ml 240 ml medications Current Medications Medications Dose Ordered Sig/Berto Route Start Time Stop Time Status Last Admin Dose Admin Diagnostic Test (Pha) 1 strip ACHS 08/11/24 11:30 08/15/24 10:42 1 STRIP Insulin Human Regular ACHS SC 08/11/24 11:30 Dextrose 50 ml UD PRN IV 08/11/24 10:45 Aspirin 81 mg DAILY PO 08/12/24 10:00 08/14/24 08:28 81 MG Acetaminophen 650 mg Q6HP PRN PO 08/11/24 10:45 08/13/24 15:41 650 MG Ondansetron HCl 4 mg Q4HP PRN IV 08/11/24 10:45 08/15/24 10:00 4 MG Nitroglycerin 0.4 mg Q5MINP PRN SL 08/11/24 10:45 Morphine Sulfate 2 mg Q30M PRN IV 08/11/24 10:45 Benazepril HCl 10 mg DAILY PO 08/12/24 10:00 08/14/24 08:29 10 MG Hydrochlorothiazide 25 mg QAM PO 08/12/24 07:00 08/13/24 05:33 25 MG Pantoprazole Sodium 40 mg DAILY@0600 PO 08/12/24 06:00 08/15/24 06:23 40 MG Lorazepam 1 mg Q8HP PRN IV 08/12/24 05:15 08/13/24 16:41 1 MG Acetaminophen/ Hydrocodone Bitart 1 tab Q6HPRN PRN PO 08/13/24 16:15 08/14/24 18:11 1 TAB Atorvastatin Calcium 80 mg HS PO 08/14/24 22:00 08/14/24 22:28 80 MG Examination: GENERAL:Abnormal, HEENT:Abnormal, LUNGS:Abnormal, CVS:Abnormal, ABDOMEN:Abnormal laboratory and microbiology Laboratory Tests 08/15/24 05:51 Test 08/15/24 05:51 Range/Units Serum Glucose 112 H 74-106 mg/dL Problem List/Assessment/Plan Problem List/Assessment/Plan chest pain ACS rule out dm HTN HL negative stress mpi for major ischemia asa, statin outpt fu cv cleared for dc home Plan discussed with: Patient Dietary Evaluation Review Comments: 1) Add 60g CCHO restriction to cardiac diet order. Encourage patient to limit intake of added sugar and spread out intake of carbohydrates throughout the day - pair with protein to promote glycemic control. 2) Continue to encourage optimal PO intake 3) Refer to RD/CD[facility] for diabetes education/weight management 4) Follow-up with cardiology 5) Continue current perez of care Expected Outcomes/Goals: 1) appetite and labs to improve 2) f/u in 5 days Date of Service: Aug 15, 2024 Billing Provider: JOSH HERNANDEZ MD Common Visit Codes: NOT BILLABLE JOSH HERNANDEZ MD Aug 15, 2024 15:44
[2024-08-16] VITALS (7 sets, daily range): BP systolic 105–145; BP diastolic 60–76; PULSE 72–95; RESP 17–20; TEMP 36.4; O2SAT 90–97
--- NOTE | 2024-08-16 11:46 | DVH ---
Carotid Duplex Date: 08/16/2024 11:21 AM Clinical History: Stroke, TIA Comparison: None Technique: Duplex Doppler evaluation of the extracranial carotid and vertebral arteries including color Doppler and spectral/pulsed waveform analysis was performed. Findings: RIGHT SIDE: The peak systolic velocities are 94 cm/s in the distal CCA and 88 cm/s in the proximal ICA.The ICA/CC A ratio is less than 1. The external carotid artery is patent with peak systolic velocity of 127 cm/s proximally. There is appropriate antegrade flow in the right vertebral artery. LEFT SIDE: The peak systolic velocities are 96 cm/s in the distal CCA and 115 cm/s in the proximal ICA.. The IC A/CCA ratio is less than 2. The external carotid artery is patent with peak systolic velocity of 112 cm/s proximally. There is appropriate antegrade flow in the left vertebral artery. IMPRESSION: No hemodynamically significant stenosis noted in the right carotid system. No hemodynamically significant stenosis noted in the left carotid system. Reference: Radiology 2003; 229:[id number]
--- NOTE | 2024-08-16 12:00 | DVHDS2 ---
Discharge Summary Date of Admission Aug 11, 2024 at 10:44 Date of Discharge: Aug 16, 2024 Admitting Diagnosis Chest pain Labs/Diagnostic Data: Laboratory Results Test 08/16/24 11:15 08/15/24 05:51 08/13/24 08:43 08/12/24 04:38 POC Glucose 111 mg/dl (70-106) White Blood Count 7.4 10^3/uL (4.4-10.8) Red Blood Count 4.68 10^6/uL (4.0-5.20) Hemoglobin 13.3 g/dL (12.2-16.2) Hematocrit 40.2 % (36.0-46.0) Mean Corpuscular Volume 85.9 fL (80.0-100.0) Mean Corpuscular Hemoglobin 28.5 pg (28.0-32.0) Mean Corpuscular Hemoglobin Concent 33.2 g/dL (32.0-36.0) Red Cell Distribution Width 13.5 % (11.8-14.3) Platelet Count 201 10^3/uL (140-450) Mean Platelet Volume 9.4 fL (6.9-10.8) Neutrophils (%) (Auto) 59.3 % (37.0-80.0) Lymphocytes (%) (Auto) 32.1 % (10.0-50.0) Monocytes (%) (Auto) 6.8 % (0.0-12.0) Eosinophils (%) (Auto) 1.4 % (0.0-7.0) Basophils (%) (Auto) 0.4 % (0.0-2.0) Neutrophils # (Auto) 4.4 10 ^3/uL (1.6-8.6) Lymphocytes # (Auto) 2.4 10 ^3/uL (0.4-5.4) Monocytes # (Auto) 0.5 10 ^3/uL (0-1.3) Eosinophils # (Auto) 0.1 10 ^3/uL (0-0.8) Basophils # (Auto) 0 10 ^3/uL (0-0.2) Nucleated Red Blood Cells 0.0 % Sodium Level 139 mmol/L (136-145) Potassium Level 3.8 mmol/L (3.5-5.1) Chloride Level 103 mmol/L (98-107) Carbon Dioxide Level 27 mmol/L (20-31) Anion Gap 9 (5-15) Blood Urea Nitrogen 15 mg/dL (9-23) Creatinine 0.91 mg/dL (0.550-1.02) Glomerular Filtration Rate Calc 69 mL/min (>90) BUN/Creatinine Ratio 16.5 (10.0-20.0) Serum Glucose 112 mg/dL (74-106) Calcium Level 10.0 mg/dL (8.7-10.4) Erythrocyte Sedimentation Rate 11 mm/hr (0-20) D-Dimer, Quantitative 0.23 mg/L FEU (0.0-0.49) Troponin I High Sensitivity < 3 ng/L (</=34) C-Reactive Protein High Sensitivity 0.44 mg/dL (<1.0) Magnesium Level 2.4 mg/dL (1.6-2.6) Test 08/11/24 09:00 08/11/24 08:28 Urine Color Colorless (Yellow) Urine Clarity Clear (Clear) Urine pH 5.0 (5.0-9.0) Urine Specific [place] 1.009 (1.001-1.035) Urine Protein Negative (Negative) Urine Ketones Negative (Negative) Urine Blood Negative /uL (Negative) Urine Nitrite Negative (Negative) Urine Bilirubin Negative (Negative) Urine Urobilinogen Normal mg/dL (Negative) Urine Leukocyte Esterase Negative /uL (Negative) Urine RBC 1 /hpf (0 - 4) Urine Microscopic WBC < 1 /HPF (0-5) Urine Squamous Epithelial Cells Few /hpf (<5) Urine Bacteria None seen /hpf (None Seen) Urine Glucose Normal mg/dL (Normal) Urine Opiates Screen Neg (NEGATIVE) Urine Fentanyl Screen Neg (NEGATIVE) Urine Barbiturates Screen Neg (NEGATIVE) Urine Phencyclidine Screen Neg (NEGATIVE) Urine Amphetamines Screen Neg (NEGATIVE) Urine Benzodiazepines Screen Neg (NEGATIVE) Urine Cocaine Screen Neg (NEGATIVE) Urine Cannabinoids Screen Neg (NEGATIVE) Hemoglobin A1c 6.4 % A1C (<5.7) Triglycerides Level 405 mg/dL (< 150) Cholesterol Level 283 mg/dL (< 200) LDL Cholesterol mg/dL (< 100) HDL Cholesterol 44 mg/dL (40-59) Thyroid Stimulating Hormone (TSH) 2.70 uIU/mL (0.55-4.78) Other Laboratory Tests 08/15/24 05:51 Brief Hx & Hospital Course: History of Present Illness Eleni Tillman is a 69-year-old female with past medical history of hypertension, hyperlipidemia, diabetes, GERD, anxiety, and cholecystectomy who presents to the ED with substernal chest pain that radiates to her left shoulder and back. Patient reports that she was sleeping at the time and the pain woke her up around 7:00 a.m. this morning. She complains of throbbing 8/10 intermittent pain. Patient does report that she is taking care of her sick at home. Patient states that there are no alleviating factors. She denies any recent trauma or injury, recent illnesses, shortness of breath, abdominal pain, nausea, vomiting, diarrhea, lightheadedness, weakness, and dizziness. Course of hospitalization: Patient had troponins were negative x3. Patient continued to have which she complained of substernal chest pain radiating to her back. Patient had cardiology consultation with patient undergoing echocardiogram as well as nuclear stress test which was negative for any ischemic changes. Patient has been cleared from Cardiology standpoint to be discharged home. Patient was found to have severe hypercholesterolemia as well as dyslipidemia. Patient was started on atorvastatin 80 mg q.h.s.. D-dimer was also found to be negative. Patient is now complaining of left arm tingling as well as tingling to her left leg. Carotid Doppler study was performed which was negative. CT scan of the head was.................. Patient will be discharged home as instructed to continue following a consistent carbohydrate, cardiac diet that is low in fat. She was instructed to follow up with her PCP in 1-2 weeks. Patient will be prescribed appropriate statins. Discussed with patient's family as well. All questions answered. Physical examination General: Alert and Oriented x3. No acute distress. Well-nourished. Eyes: EOMI. Anicteric. HENT: Moist mucous membranes. Lungs: Clear to auscultation bilaterally. No accessory muscle use. Cardiovascular: Regular rate and rhythm. No murmur. No JVD. Abdomen: Soft, non-tender and non-distended. No palpable masses. Extremities: No edema. Non-tender. Skin: No rashes or lesions. Warm. Neurologic: No focal neurological deficits. CN II-XII grossly intact, but not individually tested. Psychiatric: Cooperative. Appropriate mood and affect. Total time spent with patient discussing and formulating plan of care: 35 minutes. This medical document was created using an electronic medical record system with [employer] dictation system. Although this document has been carefully reviewed, there may still be some phonetic and typographical errors. These areas are purely typographical due to imperfections of the software programs, and do not reflect any compromise in the patient's medical care. Consults/Reason for consult Cardiology: Rule out ACS Condition at Discharge: Fair Final Diagnosis/Problems List ACS ruled out. CVA ruled out. Secondary diagnosis: -primary hypertension -dyslipidemia -anxiety disorder -diabetes mellitus: A1c 6.4 Discharge Disposition: Home Discharge Instruct/Medications Diet: Consistent carbohydrate, Cardiac 2g Na,low cholest Follow Up/Referral: PCP in 1-2 weeks Medications: Refer to medication reconciliation form 36 Discharge Statement: "Patient was advised to return to the ER or call 911 if any headaches, dizziness, shortness of breath, chest pain, abdominal pain, bleeding, fevers, or worsening of medical condition. Patient was counseled about treatment plan, medications, possible side effects, patientverbalized understanding. All questions were answered to the best of my ability. This discharge took greater then 30 minutes in planning, reviewing documentation, counseling the patient, and discussing with other team members." ASSESSMENT ASSESSMENT Assessment Date of Service: Aug 16, 2024 Billing Provider: KEISHA BIANCHI NP Common Visit Codes: 29771-SZE/OBS DISCH DAY >30min KEISHA BIANCHI NP Aug 16, 2024 11:59
--- NOTE | 2024-08-16 12:17 | DVH ---
CLINICAL INFORMATION: Rule out CVA, TIA TECHNIQUE: Axial imaging was obtained through the brain without contrast. Coronal and sagittal reform atted images were obtained, reviewed, and stored. Images were reviewed in brain and bone windows. Al l CT scans at this medical facility are performed using dose modulation techniques as appropriate to a performed exam including the following: Automated exposure control was utilized; adjustment of the MA and/or KV according to patient size; and use of iterative reconstruction technique. CTDIvol = 54.8 mGy DLP = 969.24 mGy-cm COMPARISON: None FINDINGS: There is no acute intracranial hemorrhage. No mass effect or midline shift. The ventricles and sulci are within normal limits in size for age. Basal cisterns are patent. Empty sella incidental ly noted. The calvarium is unremarkable. Paranasal sinuses and mastoid air cells are clear. IMPRESSION: No CT evidence of acute intracranial abnormality.
[2024-08-16] MEDS ORDERED: ATOR20TA50 PO (14:25)
== END 2024-08-16 17:40 | disposition home or self-care (01) | DRG 313 ==
LOC: ER 08:03 → EDBD 08:03 → OVERFLOW 10:44 → TELE-EAST 08-12 09:27
PROVIDERS: ADMIT Nurse Practitioner Acute Care; ATTEND Nurse Practitioner Acute Care
DX: R07.89 Other chest pain (principal); K21.9 Gastro-esophageal reflux disease without esophagitis; E11.65 Type 2 diabetes mellitus with hyperglycemia; E87.6 Hypokalemia; F41.9 Anxiety disorder, unspecified; E78.00 Pure hypercholesterolemia, unspecified; M54.9 Dorsalgia, unspecified; I10 Essential (primary) hypertension; Z88.6 Allergy status to analgesic agent; Z90.49 Acquired absence of other specified parts of digestive tract; Z79.899 Other long term (current) drug therapy; Z79.84 Long term (current) use of oral hypoglycemic drugs; Z82.49 Family history of ischemic heart disease and other diseases of the circulatory system
CPT/HCPCS: 36415; 70450; 71045; 78452; 80048; 80061; 80307; 81001; 82962; 83036; 83735; 84443; 84484; 85025; 85379; 85652; 86141; 93005; 93017; 93306; 93886; G0378; J2405